=== PATIENT | male | born 1935 | race Caucasian/White ===

== ENCOUNTER 2019-09-14 13:09 | Inpatient (IN) ==
--- NOTE | 2019-09-14 13:23 | ERNOTE ---
Neuro HPI ER Record Presenting Symptoms: weakness, impaired speech, confusion Time Seen by Provider: 09/14/19 13:12 Source: family Exam Limitations: clinical condition Immunizations: IMMUNIZATION HX Immunizations Up to Date Yes History of Influenza Vaccine Yes Hx Pneumococcal Vaccination Yes Allergies/Adverse Reactions: Allergies Allergy/AdvReac Type Severity Reaction Status Date / Time No Known Allergies Allergy Verified 07/31/19 13:55 Home Medications: HOME MEDICATIONS Bifidobacterium infantis 1.5 billion cell capsule 4 mg PO DAILY 07/30/19 [Last Taken Unknown] apixaban 2.5 mg tablet 2.5 mg PO BID 07/30/19 [Last Taken Unknown] aspirin 81 mg tablet,delayed release 81 mg PO DAILY 07/30/19 [Last Taken Unknown] atorvastatin 10 mg tablet 10 mg PO HS 07/30/19 [Last Taken Unknown] cholecalciferol (vitamin D3) 2,000 unit capsule 2,000 unit PO DAILY 07/30/19 [Last Taken Unknown] folic acid 1 mg tablet 1 mg PO DAILY 07/30/19 [Last Taken Unknown] ipratropium-albuterol 0.5 mg-3 mg(2.5 mg base)/3 mL nebulization soln 3 ml IH QID PRN ml 07/30/19 [Last Taken Unknown] thiamine HCl (vitamin B1) 100 mg tablet 100 mg PO DAILY 07/30/19 [Last Taken Unknown] - History of Present Illness Narrative: states that at 9:30 this morning the patient was groggy and did not particularly want to get out of bed. At approximately noon he was confused and unable to answer questions adequately. Onset: cannot confirm onset, continues in ER Severity: moderate - Character of Deficits Additional Deficits: Present: impaired speech Baseline Cognition: Present: alert, oriented x 4 Baseline Gait: Present: uses a cane/walker Associated Symptoms: Denies: fever/chills, sweating Review of Systems - Review of Systems Constitutional: Present: See HPI EYE: Present: no symptoms reported ENT: Present: no symptoms reported Respiratory: Present: no symptoms reported Cardiology: Present: no symptoms reported Gastrointestinal/Abdominal: Present: no symptoms reported Genitourinary: Present: no symptoms reported Musculoskeletal: Present: no symptoms reported Skin: Present: no symptoms reported Neurological: Present: See HPI Endocrine: Present: no symptoms reported Hematologic/Lymphatic: Present: no symptoms reported Psych: Present: no symptoms reported Medical History (Last Reviewed 12/22/19 @ 13:32 by Sherin Roca RN) Dementia History of CVA (cerebrovascular accident) Onset Date: ~2015 History of [place] (myocardial infarction) Onset Date: ~1994 History of prostate cancer Onset Date: ~1995 had radiation and prostatectomy Weakness of right hand History of fracture of pelvis Onset Date: ~2016 Surgical History: Surgical History (Last Reviewed 09/14/19 @ 13:32 by Sherin Roca RN) H/O vasectomy Onset Date: ~1957 History of angioplasty Onset Date: ~1994 History of prostatectomy Onset Date: ~2000 Family History: Family History (Last Reviewed 09/14/19 @ 13:32 by Sherin Roca RN) Father COPD (chronic obstructive pulmonary disease) Social History: (Last Reviewed 09/14/19 @ 13:32 by Sherin Roca RN) Social History: Marital status: lives independently: Yes household members: spouse current occupational status: retired Highest education level completed: high school graduate Service: Yes Tobacco: Tobacco: How many years used: 50 Alcohol: alcohol intake: former Dietary Habits: caffeine: Yes Physical Exam - Physical Exam General Appearance: Present: wd/wn, alert, moderate distress Head Exam: Present: normal inspection, no evidence of injury Eye Exam: Normal inspection: bilateral, PERRL: bilateral Ears, Nose, Throat: Present: normal ENT inspection, H, normal pharynx Neck: Present: normal inspection, nontender Respiratory: Present: no respiratory distress, normal breath sounds, no accessory muscle use, chest nontender, lungs clear Cardiovascular/Chest: Present: no murmur, normal peripheral pulses, tachycardia Gastrointestinal/Abdominal: Present: normal bowel sounds, nontender, nondistended, soft, no organomegaly Rectal Exam: Present: deferred Back Exam: Present: normal inspection, normal range of motion Extremity Exam: Present: normal inspection, non-tender, no edema, normal range of motion Neurological Exam: Present: normal mood/affect, disoriented to person, disoriented to time, disoriented to place, disoriented to situation Skin Exam: Present: normal color, warm/dry Lymphatic Exam: Present: no adenopathy Deisi Coma Scale - Assess Eye Opening: Spontaneous Motor: Obeys Commands Verbal: Confused - Total Coma Scale Total: 14 Progress - Results and Orders Patient's Lab Results:: I have reviewed the patient's lab results. - Vital Signs Patient's Vital Signs:: I have reviewed the patient's vital signs. Vital Signs: Vital Signs 09/14/19 13:09 Temperature 36.4 C Pulse Rate 107 H Respiratory Rate 18 Blood Pressure 134/59 - EKG EKG #1 EKG: other - Sinus tachycardia - X-Ray X-Ray #1 X-Ray: chest Interpretation: Reviewed by me - CT/Ultrasound CT/Ultrasound Narrative: CT the head was reviewed by me - Progress/Reassessment Chief Complaint: Altered Mental Status Plan - Plan Plan: Patient starting to answer more questions now. He was never going to be a candidate for TPA as he is currently on Eliquis. Patient may need to be admitted overnight so we can get an echocardiogram and carotid Dopplers. Patient will likely need a swallow study as well. Departure Clinical Impression: CVA (cerebral vascular accident) Qualifiers: CVA mechanism: unspecified Qualified Code(s): I63.9 - Cerebral infarction, unspecified - Departure Disposition: Short Term Hospital Inpatient Condition: Fair Referrals: Marlon Yanes MD [Primary Care Provider] -
[2019-09-14 13:39] LABS: Hematocrit 29.9 % (42.0-52.0); Hemoglobin 9.6 gm/dL (13.5-18.0); Mean Cell Volume 98.7 fl (78-100); Mean Corpuscular Hemoglobin 31.7 pg (27-31); Mean Corpuscular Hgb Conc 32.1 g/dl (32-36); Mean Platelet Volume 9.3 fl (8-11.3); Neutrophil # 10.8 K/mm3 (1.3-6.0); Neutrophil % 78.6 % (42-75.0); Platelet Count 376 K/mm3 (150-450); Red Blood Count 3.03 M/mm3 (4.7-6.0); Red Cell Distribution Width 13.7 % (11.5-14.0); White Blood Count 13.8 K/mm3 (4.0-10.5)
[2019-09-14 13:50] LABS: Prothrombin Time (Patient) 11.2 Seconds (9.1-10.7)
[2019-09-14 13:52] LABS: INR 1.14 INR (0.92-1.08); Partial Thrombolplastin Time 27.2 Seconds (24-32)
[2019-09-14 13:53] LABS: Albumin * 3.3 gm/dl (3.4-5.0); Anion Gap 12.9 mmol/L (6.8-13.8); Bilirubin, Total 0.9 mg/dL (0.0-1.1); Ca. Corrected For Albumin 9.2 mg/dL (8.4-10.2); Carbon Dioxide 29.1 mmol/L (24-32.6); Total Protein 7.3 gm/dL (6.2-8.2)
[2019-09-14 14:02] LABS: Urine Appearance Clear (CLEAR); Urine Bilirubin Negative (NEGATIVE); Urine Blood 150 /ul (NEGATIVE); Urine Color Yellow; Urine Ketone Negative (NEGATIVE); Urine pH 6.5 pH (5.0-7.0)
[2019-09-14 14:03] LABS: Urine Nitrite Negative (NEGATIVE); Urine Protein 30 mg/dL (NEGATIVE); Urine Urobilinogen Normal (NORMAL); Urine WBC 0-5 /hpf (0-5)
[2019-09-14 14:09] LABS: Urine Bacteria TRACE
[2019-09-14] MEDS ORDERED: ALBUTEROL SULFATE/IPRATROPIUM 3 ML NEBU IH PRN (15:08)
--- NOTE | 2019-09-14 15:33 | HP ---
Chief Complaint - Chief Complaint Date of Service: 09/14/19 Time of Service: 15:10 Chief Complaint: BL LE weakness and expressive aphasia History of Present Illness: 83-year-old male with past medical history of CVA in 2016 with residu al deficits of hemiparesis affecting right side and dysphagia, multiple TIAs, history of myocardial infarction, vascular dementia status post CVA, gait disturbance and vitamin B12 deficiency presents to the ER with concerns of bilateral lower extremity weakness and expressive aphasia since 11 AM. Primary care provider is Dr. Akila MD. is at bedside. states that when he went to bed yesterday 7 PM, patient was able to speak and ambulate with a walker, she went in at 9:30 AM to wake him up however patient did not want to be woken up at that time, which was not abnormal with his history of dementia. At around 11 AM, his went in and attempted to take patient to the bathroom and while he was using his walker patient was not able to hold himself up and was showing signs of lower extremity weakness bilaterally, placed him on the chair and he tried to communicate to his and she could not understand him, speech was described as mumbled and slurred. Patient was brought to the ER for further evaluation. Upon arrival to the ER patient did show signs of hemiparesis affecting right side and expressive aphasia which temporarily resolved however at noon his symptoms resumed. Vital signs on arrival were largely unremarkable with exception of mildly elevated blood pressure. Labs obtained was significant for leukocytosis most likely reactive. CT of the head ruled out an acute bleed. Patient not a candidate for TPA due to being on Eliquis. Patient admitted under observation. On arrival to the floor patient was evaluated. NIHSS : 34. Due to his waning symptoms there is concern of possible clots, therefore will obtain a carotid ultrasound and an echo scheduled for tomorrow morning. PT/OT and speech therapy ordered as well. Patient is n.p.o. till video swallow. Due to dysphagia patient is on thick nectar diet at home. Will continue with neurochecks Q4H. Medical History (Last Reviewed 09/14/19 @ 15:02 by Natalie Voss RN) Dementia History of CVA (cerebrovascular accident) Onset Date: ~2015 History of [place] (myocardial infarction) Onset Date: ~1994 History of prostate cancer Onset Date: ~1995 had radiation and prostatectomy Weakness of right hand History of fracture of pelvis Onset Date: ~2016 Surgical History: Surgical History (Last Reviewed 09/14/19 @ 15:02 by Natalie Voss RN) H/O vasectomy Onset Date: ~1957 History of angioplasty Onset Date: ~1994 History of prostatectomy Onset Date: ~2000 Family History: Family History (Last Reviewed 09/14/19 @ 15:02 by Natalie Voss RN) Father COPD (chronic obstructive pulmonary disease) Social History: (Last Reviewed 09/14/19 @ 15:02 by Natalie Voss RN) Social History: Marital status: lives independently: Yes household members: spouse current occupational status: retired Highest education level completed: high school graduate Service: Yes Tobacco: Tobacco: How many years used: 50 Alcohol: alcohol intake: former Dietary Habits: caffeine: Yes Review Of Systems (GEN) - Review of Systems Generalized/Overall Review: Present: Weakness EENTM: Present: Other - Unable to track Respiratory: Absent: Shortness of Breath Cardiac: Absent: Chest Pain, Edema Abdominal: Absent: Abdominal Pain Genitourinary: Present: Incontinent - wears diapers at home Musculoskeletal: Absent: Joint Pain, Joint Swelling Neurological: Present: Weakness - Global weakness, Pre-existing Deficit - Right Hemiparesis and Dysphagia Skin: Present: Dryness Immunizations: IMMUNIZATION HX Immunizations Up to Date Yes History of Influenza Vaccine Yes Hx Pneumococcal Vaccination Yes Allergies/Adverse Reactions: Allergies Allergy/AdvReac Type Severity Reaction Status Date / Time morphine AdvReac Severe Other Verified 09/14/19 14:53 Home Medications: HOME MEDICATIONS Bifidobacterium infantis 1.5 billion cell capsule 4 mg PO DAILY 07/30/19 [Last Taken Unknown] apixaban 2.5 mg tablet 2.5 mg PO BID 07/30/19 [Last Taken Unknown] aspirin 81 mg tablet,delayed release 81 mg PO DAILY 07/30/19 [Last Taken Unknown] atorvastatin 10 mg tablet 10 mg PO HS 07/30/19 [Last Taken Unknown] cholecalciferol (vitamin D3) 2,000 unit capsule 2,000 unit PO DAILY 07/30/19 [Last Taken Unknown] folic acid 1 mg tablet 1 mg PO DAILY 07/30/19 [Last Taken Unknown] ipratropium-albuterol 0.5 mg-3 mg(2.5 mg base)/3 mL nebulization soln 3 ml IH QID PRN ml 07/30/19 [Last Taken Unknown] thiamine HCl (vitamin B1) 100 mg tablet 100 mg PO DAILY 07/30/19 [Last Taken Unknown] Exam - Exam Vital Signs: Vital Signs - Last Taken Temp 36.4 C 09/14/19 13:18 Pulse 104 H 09/14/19 14:12 Resp 17 09/14/19 14:12 BP 153/76 H 09/14/19 14:12 Pulse Ox 99 09/14/19 14:12 Constitutional: Present: Alert, Other - Unable to communicate, Thin and frail ENT Exam: Present: hearing grossly normal Eye Exam: bilateral eye: abnormal EOM, other - unable to evaluate,patient to completely open eyes Neck: Present: limited range of motion - unable to rotate neck towards the right side Back Exam: Present: decreased range of motion - of all extremitiexs Respiratory: Present: lungs clear, normal breath sounds Cardiovascular/Chest: Present: normal peripheral pulses, regular rate, rhythm Abdomen: Present: Normal bowel sounds, soft Extremity: Present: no pedal edema, other - BL LE weakness Skin Exam: Present: warm/dry Neurologic: Present: alert, abnormal order selector II-XII, abnormal gait, aphasia, EOM palsy, facial droop, motor weakness - BL LE and Right upper extremity, depressed affect, disoriented x 3 Appearance: Present: impaired insight, other - dementia Eye contact: Present: other - unable to maintain eye contact Diagnostic Studies: Abnormal Lab Results 09/14/19 09/14/19 09/14/19 Range/Units 13:33 13:33 13:33 WBC 13.8 H (4.0-10.5) K/mm3 RBC 3.03 L (4.7-6.0) M/mm3 Hgb 9.6 L (13.5-18.0) gm/dL Hct 29.9 L (42.0-52.0) % MCH 31.7 H (27-31) pg Immature Gran # (Auto) 0.04 H (0.000-0.0310) K/mm3 Neutrophils % 78.6 H (42-75.0) % Lymphocytes % 12.9 L (20-51) % Neutrophils # 10.8 H (1.3-6.0) K/mm3 Monocytes # 1.1 H (0.0-1.0) k/mm3 ESR 92 H (0-10) mm/hr PT 11.2 H (9.1-10.7) Seconds INR (Anticoag Therapy) 1.14 H (0.92-1.08) INR Potassium (3.4-4.6) mmol/L BUN (6-23) mg/dL Creatinine (0.4-1.4) mg/dL Est GFR (Non-Af Amer) (60-130) mL/min Random Glucose (70-110) mg/dL ALT (19-67) U/L Albumin (3.4-5.0) gm/dl Urine Protein (NEGATIVE) mg/dL Urine Blood (NEGATIVE) /ul Urine RBC (0-5) /hpf 09/14/19 09/14/19 Range/Units 13:33 13:51 WBC (4.0-10.5) K/mm3 RBC (4.7-6.0) M/mm3 Hgb (13.5-18.0) gm/dL Hct (42.0-52.0) % MCH (27-31) pg Immature Gran # (Auto) (0.000-0.0310) K/mm3 Neutrophils % (42-75.0) % Lymphocytes % (20-51) % Neutrophils # (1.3-6.0) K/mm3 Monocytes # (0.0-1.0) k/mm3 ESR (0-10) mm/hr PT (9.1-10.7) Seconds INR (Anticoag Therapy) (0.92-1.08) INR Potassium 5.0 H D (3.4-4.6) mmol/L BUN 25 H (6-23) mg/dL Creatinine 1.56 H (0.4-1.4) mg/dL Est GFR (Non-Af Amer) 45 L (60-130) mL/min Random Glucose 117 H (70-110) mg/dL ALT 15 L (19-67) U/L Albumin 3.3 L (3.4-5.0) gm/dl Urine Protein 30 H (NEGATIVE) mg/dL Urine Blood 150 H (NEGATIVE) /ul Urine RBC 5-10 H (0-5) /hpf Laboratory Results WBC 13.8 K/mm3 (4.0-10.5) H 09/14/19 13:33 RBC 3.03 M/mm3 (4.7-6.0) L 09/14/19 13:33 Hgb 9.6 gm/dL (13.5-18.0) L 09/14/19 13:33 Hct 29.9 % (42.0-52.0) L 09/14/19 13:33 MCV 98.7 fl (78-100) 09/14/19 13:33 MCH 31.7 pg (27-31) H 09/14/19 13:33 MCHC 32.1 g/dl (32-36) 09/14/19 13:33 RDW 13.7 % (11.5-14.0) 09/14/19 13:33 Plt Count 376 K/mm3 (150-450) 09/14/19 13:33 MPV 9.3 fl (8-11.3) 09/14/19 13:33 Immature Gran % (Auto) 0.30 % (0.001-0.429) 09/14/19 13:33 Immature Gran # (Auto) 0.04 K/mm3 (0.000-0.0310) H 09/14/19 13:33 Neutrophils % 78.6 % (42-75.0) H 09/14/19 13:33 Lymphocytes % 12.9 % (20-51) L 09/14/19 13:33 Monocytes % 7.8 % (0.0-9) 09/14/19 13:33 Eosinophils % 0.0 % (0.0-3.0) 09/14/19 13:33 Basophils % 0.4 % (0.0-1.0) 09/14/19 13:33 Nucleated RBC % 0.0 k/mm3 (0-1) 09/14/19 13:33 Neutrophils # 10.8 K/mm3 (1.3-6.0) H 09/14/19 13:33 Lymphocytes # 1.78 k/mm3 (1.5-3.5) 09/14/19 13:33 Monocytes # 1.1 k/mm3 (0.0-1.0) H 09/14/19 13:33 Eosinophils # 0.0 k/mm3 (0.0-0.7) 09/14/19 13:33 Absolute Basophils 0.1 k/mm3 (0.0-0.1) 09/14/19 13:33 ESR 92 mm/hr (0-10) H 09/14/19 13:33 PT 11.2 Seconds (9.1-10.7) H 09/14/19 13:33 INR (Anticoag Therapy) 1.14 INR (0.92-1.08) H 09/14/19 13:33 PTT ([place]) 27.2 Seconds (24-32) 09/14/19 13:33 Sodium 140 mmol/L (132-142) 09/14/19 13:33 Plasma Sodium 140 mmol/L (130-142) 09/14/19 13:33 Potassium 5.0 mmol/L (3.4-4.6) H D 09/14/19 13:33 Chloride 103 mmol/L (97-106) 09/14/19 13:33 Carbon Dioxide 29.1 mmol/L (24-32.6) 09/14/19 13:33 Anion Gap 12.9 mmol/L (6.8-13.8) 09/14/19 13:33 BUN 25 mg/dL (6-23) H 09/14/19 13:33 Creatinine 1.56 mg/dL (0.4-1.4) H 09/14/19 13:33 Est GFR (Non-Af Amer) 45 mL/min (60-130) L 09/14/19 13:33 BUN/Creatinine Ratio 16.0 (9.0-21.6) 09/14/19 13:33 Random Glucose 117 mg/dL (70-110) H 09/14/19 13:33 Calcium 9.0 mg/dL (7.9-10.9) 09/14/19 13:33 Calcium Adj for Albumin 9.2 mg/dL (8.4-10.2) 09/14/19 13:33 Total Bilirubin 0.9 mg/dL (0.0-1.1) 09/14/19 13:33 AST 16 U/L (0-48) 09/14/19 13:33 ALT 15 U/L (19-67) L 09/14/19 13:33 Alkaline Phosphatase 94 U/L (50-170) 09/14/19 13:33 Total Protein 7.3 gm/dL (6.2-8.2) 09/14/19 13:33 Albumin 3.3 gm/dl (3.4-5.0) L 09/14/19 13:33 Urine Color Yellow 09/14/19 13:51 Urine Appearance Clear (CLEAR) 09/14/19 13:51 Urine pH 6.5 pH (5.0-7.0) 09/14/19 13:51 Ur Specific [place] 1.020 SP.GR. (1.005-1.030) 09/14/19 13:51 Urine Protein 30 mg/dL (NEGATIVE) H 09/14/19 13:51 Urine Glucose (UA) Negative mg/dL (NEGATIVE) 09/14/19 13:51 Urine Ketones Negative mg/dL (NEGATIVE) 09/14/19 13:51 Urine Blood 150 /ul (NEGATIVE) H 09/14/19 13:51 Urine Nitrate Negative (NEGATIVE) 09/14/19 13:51 Urine Bilirubin Negative mg/dl (NEGATIVE) 09/14/19 13:51 Prot Sulfosalicylic Acd 1+ mg/dL (0) 09/14/19 13:51 Urine Urobilinogen Normal EU/dl (NORMAL) 09/14/19 13:51 Ur Leukocyte Esterase Negative /ul (NEGATIVE) 09/14/19 13:51 Urine RBC 5-10 /hpf (0-5) H 09/14/19 13:51 Urine WBC 0-5 /hpf (0-5) 09/14/19 13:51 Ur Epithelial Cells 0-5 /hpf (0-5) 09/14/19 13:51 Urine Bacteria Trace (NONE) 09/14/19 13:51 Urine Culture Comments No culture indicated 09/14/19 13:51 Assessment/Plan - Narrative Narrative: - Assessment/Plan (1) Acute CVA (cerebral vascular accident) - NIHSS: 34 - CT head r/o acute bleed - Not a candidate for tPA due to Eliquis - Neurocheck Q4H - Allow permissive hypertension - Cotinous telemetry - Aspirin 325 mg rectally - Lovenox Q224H, unable to take PO therefore Eliquis and Plavix not an option for anticoagulation - Awaiting to hear from Pharmacy for IV choice for high dose statin - US of Crotids and Echo Pending. (2) Hemiparesis affecting right upper and lower extremity and Left Lower extremity - PT/OT ordered (3) Dysphagia and Expressive Aphasia - NPO, till video swallow, keep mouth moist with most swabs - Speech therapy ordered (4) Vascular dementia - Chronic FEN: NPO DVT PPX: Lovenox 40 mg SC CODE STATUS: DNR/DNI Disposition: - Follow up on US of Carotids and Echo - Follow up on PT/OT & Speech Therapy Recommendations. - Assessment/Plan (1) CVA (cerebral vascular accident) Problem: Acute Qualifiers: CVA mechanism: unspecified Qualified Code(s): I63.9 - Cerebral infarction, unspecified (2) Dysphagia Problem: Acute Qualifiers: Dysphagia type: oropharyngeal phase Qualified Code(s): R13.12 - Dysphagia, oropharyngeal phase (3) Hemiparesis affecting right side as late effect of cerebrovascular accident Problem: Chronic (4) Vascular dementia Problem: Chronic Qualifiers: Dementia behavioral disturbance: without behavioral disturbance
[2019-09-14] MEDS ORDERED: ENOXAPARIN SODIUM 40 MG/0.4 ML SYRG SC ONE (15:46)
[2019-09-14] MEDS: ENOXAPARIN SODIUM 30 MG/0.3 ML SYRG SC SCH (16:20)
[2019-09-15 06:36] LABS: Hematocrit 25.9 % (42.0-52.0); Hemoglobin 8.4 gm/dL (13.5-18.0); Mean Cell Volume 98.1 fl (78-100); Mean Corpuscular Hemoglobin 31.8 pg (27-31); Mean Corpuscular Hgb Conc 32.4 g/dl (32-36); Mean Platelet Volume 9.4 fl (8-11.3); Platelet Count 386 K/mm3 (150-450); Red Blood Count 2.64 M/mm3 (4.7-6.0); Red Cell Distribution Width 13.9 % (11.5-14.0); White Blood Count 9.5 K/mm3 (4.0-10.5)
[2019-09-15 06:40] LABS: Albumin * 2.8 gm/dl (3.4-5.0); Anion Gap 13.4 mmol/L (6.8-13.8); BUN/Creatinine Ratio 21.4 (9.0-21.6); Bilirubin, Total 0.6 mg/dL (0.0-1.1); Ca. Corrected For Albumin 9.4 mg/dL (8.4-10.2); Calcium * 8.8 mg/dL (7.9-10.9); Carbon Dioxide 26.9 mmol/L (24-32.6); Potassium 4.3 mmol/L (3.4-4.6); Total Protein 6.5 gm/dL (6.2-8.2)
[2019-09-15 06:48] LABS: Total Cells Counted 100
[2019-09-15 07:00] LABS: Lymphocyte 24 % (20-51); Monocyte 9 % (0-9); Neutrophil 67 % (42-75); Neutrophil # 6.4 K/mm3 (1.3-6.0); Platelet Estimate Normal (NORMAL); RBC Morphology Normal (NORMAL)
[2019-09-15] MEDS ORDERED: ASPIRIN 300 MG SUPP.RECT RC SCH (09:00)
[2019-09-15] MEDS ORDERED: ASPIRIN 325 MG TABLET.DR PO ONE (11:46)
--- NOTE | 2019-09-15 12:09 | PN ---
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 is at bedside. states that when he went to bed yesterday the night before last, patient was able to speak and ambulate with a walker, she went in at 9:30 AM to wake him up however patient did not want to be woken up at that time, which was not abnormal with his history of dementia. At around 11 AM, his went in and attempted to take patient to the bathroom and while he was using his walker patient was not able to hold himself up and was showing signs of lower extremity weakness bilaterally, primarily left sided, placed him on the chair and he tried to communicate to his and she could not understand him, speech was described as mumbled and slurred. Patient was brought to the ER for further evaluation. Upon arrival to the ER patient did show signs of hemiparesis affecting left side and expressive aphasia which temporarily resolved however at noon his symptoms resumed. He has chronic weakness on the right side due to previous stroke. He is right hand dominent Vital signs on arrival were largely unremarkable with exception of mildly elevated blood pressure, which has resolved, and vitals have been stable since. Labs obtained was significant for leukocytosis most likely reactive, resolving on today's lab. He was anemic on admission and dropped 1 gram of hgb on today's labs.. CT of the head ruled out an acute bleed. Patient not a candidate for TPA due to being on Eliquis. His echo and carotid doppler reports are not yet available. Patient admitted under observation. On arrival to the floor patient was evaluated. NIHSS : 34. PT/OT and speech therapy in progress. Speech says pureed food and honey thickened liquids. She said video swallow not needed. we will continue neurochecks q4h, but as he is stable, will d/c telemetry. Objective - Review of Systems Generalized/Overall Review: Reports: Weakness EENTM: Reports: No Symptoms Reported Respiratory: Reports: No Symptoms Reported Cardiac: Reports: No Symptoms Reported Genitourinary Symptoms: Reports: No Symptoms Reported Musculoskeletal Complaints: Reports: No Symptoms Reported Neurological: Reports: Weakness - new weakness left side. dysarthria, better this morning., Pre-existing Deficit Skin: Reports: No Symptoms Reported Endocrine: Reports: No Symptoms Reported Misc: All systems neg except as marked - Vitals Vitals: Last Vital Signs Temp 36.8 C 09/15/19 09:00 Pulse 91 09/15/19 09:00 Resp 18 09/15/19 09:00 BP 147/68 09/15/19 09:00 Pulse Ox 95 09/15/19 09:00 - Abnormal Lab Findings Abnormal Lab Findings: Abnormal Lab Results 09/14/19 09/14/19 09/14/19 Range/Units 13:33 13:33 13:33 WBC 13.8 H (4.0-10.5) K/mm3 RBC 3.03 L (4.7-6.0) M/mm3 Hgb 9.6 L (13.5-18.0) gm/dL Hct 29.9 L (42.0-52.0) % MCH 31.7 H (27-31) pg Immature Gran # (Auto) 0.04 H (0.000-0.0310) K/mm3 Neutrophils % 78.6 H (42-75.0) % Lymphocytes % 12.9 L (20-51) % Neutrophils # 10.8 H (1.3-6.0) K/mm3 Neutrophils # (Manual) (1.3-6.0) K/mm3 Monocytes # 1.1 H (0.0-1.0) k/mm3 ESR 92 H (0-10) mm/hr PT 11.2 H (9.1-10.7) Seconds INR (Anticoag Therapy) 1.14 H (0.92-1.08) INR Potassium (3.4-4.6) mmol/L BUN (6-23) mg/dL Creatinine (0.4-1.4) mg/dL Est GFR (Non-Af Amer) (60-130) mL/min Random Glucose (70-110) mg/dL ALT (19-67) U/L Albumin (3.4-5.0) gm/dl Urine Protein (NEGATIVE) mg/dL Urine Blood (NEGATIVE) /ul Urine RBC (0-5) /hpf 09/14/19 09/14/19 09/15/19 Range/Units 13:33 13:51 06:15 WBC (4.0-10.5) K/mm3 RBC 2.64 L (4.7-6.0) M/mm3 Hgb 8.4 L (13.5-18.0) gm/dL Hct 25.9 L (42.0-52.0) % MCH 31.8 H (27-31) pg Immature Gran # (Auto) (0.000-0.0310) K/mm3 Neutrophils % (42-75.0) % Lymphocytes % (20-51) % Neutrophils # (1.3-6.0) K/mm3 Neutrophils # (Manual) 6.4 H (1.3-6.0) K/mm3 Monocytes # (0.0-1.0) k/mm3 ESR (0-10) mm/hr PT (9.1-10.7) Seconds INR (Anticoag Therapy) (0.92-1.08) INR Potassium 5.0 H D (3.4-4.6) mmol/L BUN 25 H (6-23) mg/dL Creatinine 1.56 H (0.4-1.4) mg/dL Est GFR (Non-Af Amer) 45 L (60-130) mL/min Random Glucose 117 H (70-110) mg/dL ALT 15 L (19-67) U/L Albumin 3.3 L (3.4-5.0) gm/dl Urine Protein 30 H (NEGATIVE) mg/dL Urine Blood 150 H (NEGATIVE) /ul Urine RBC 5-10 H (0-5) /hpf 09/15/19 Range/Units 06:15 WBC (4.0-10.5) K/mm3 RBC (4.7-6.0) M/mm3 Hgb (13.5-18.0) gm/dL Hct (42.0-52.0) % MCH (27-31) pg Immature Gran # (Auto) (0.000-0.0310) K/mm3 Neutrophils % (42-75.0) % Lymphocytes % (20-51) % Neutrophils # (1.3-6.0) K/mm3 Neutrophils # (Manual) (1.3-6.0) K/mm3 Monocytes # (0.0-1.0) k/mm3 ESR (0-10) mm/hr PT (9.1-10.7) Seconds INR (Anticoag Therapy) (0.92-1.08) INR Potassium (3.4-4.6) mmol/L BUN 31 H (6-23) mg/dL Creatinine 1.45 H (0.4-1.4) mg/dL Est GFR (Non-Af Amer) 49 L (60-130) mL/min Random Glucose (70-110) mg/dL ALT 12 L (19-67) U/L Albumin 2.8 L (3.4-5.0) gm/dl Urine Protein (NEGATIVE) mg/dL Urine Blood (NEGATIVE) /ul Urine RBC (0-5) /hpf - Exam Constitutional: Present: Alert, Cooperative, No distress, Other - oriented X2, not to date or time. ENT Exam: Present: normal ENT inspection, hard of hearing Neck: Present: normal inspection. Absent: lymphadenopathy (R), lymphadenopathy (L), thyromegaly Breasts: Present: Exam deferred Respiratory: Present: lungs clear, no respiratory distress Cardiovascular/Chest: Present: normal peripheral pulses, regular rate, rhythm, no chest tenderness, no edema, no gallop, no JVD, no murmur Abdomen: Present: Normal bowel sounds, soft, nontender, no hepatospenomegaly, no masses /Rectal: Present: Exam deferred Extremity: Present: normal range of motion, non-tender, normal inspection, no pedal edema, no calf tenderness, other - can move his left arm and leg well, though weak on that side against resistance. moving slower than at home, with the help of physical therapy. Skin Exam: Present: normal color, warm/dry, no cyanosis Lymphatic: Present: no adenopathy Neurologic: Present: alert, abnormal gait, motor weakness, other - dysarthria Appearance: Present: appropriate appearance, neat Eye contact: Present: cooperative, good eye contact. Absent: normal speech Thoughts: Present: normal thought pattern Assessment/Plan - Problems/Diagnosis (1) CVA (cerebral vascular accident) Problem: Acute Qualifiers: CVA mechanism: unspecified Qualified Code(s): I63.9 - Cerebral infarction, unspecified (2) Left-sided weakness Problem: Acute Narrative: we will wait for enough improvement for him to be safe at home, using PT we will adjust his diet as recommended by ST. (3) Dysarthria Problem: Acute (4) Chronic anemia Problem: Chronic Narrative: we will continue to follow his blood count and resume his usual vitamins. (5) Vascular dementia Problem: Chronic Qualifiers: Dementia behavioral disturbance: without behavioral disturbance Qualified Code(s): F01.50 - Vascular dementia without behavioral disturbance (6) History of CVA (cerebrovascular accident) Problem: Chronic
[2019-09-15] MEDS: ENOXAPARIN SODIUM 30 MG/0.3 ML SYRG SC SCH (15:33)
[2019-09-15] MEDS ORDERED: ROSUVASTATIN CALCIUM 20 MG TABLET PO SCH (21:00)
[2019-09-15] MEDS: APIXABAN 5 MG TABLET PO SCH (21:10)
[2019-09-16 06:45] LABS: Hematocrit 25.3 % (42.0-52.0); Hemoglobin 8.1 gm/dL (13.5-18.0); Mean Cell Volume 98.8 fl (78-100); Mean Corpuscular Hemoglobin 31.6 pg (27-31); Mean Platelet Volume 9.5 fl (8-11.3); Platelet Count 364 K/mm3 (150-450); Red Blood Count 2.56 M/mm3 (4.7-6.0); Red Cell Distribution Width 13.5 % (11.5-14.0); White Blood Count 7.3 K/mm3 (4.0-10.5)
[2019-09-16 06:49] LABS: Total Cells Counted 100
[2019-09-16 06:50] LABS: Albumin * 2.6 gm/dl (3.4-5.0); Anion Gap 13.2 mmol/L (6.8-13.8); BUN/Creatinine Ratio 25.4 (9.0-21.6); Bilirubin, Total 0.3 mg/dL (0.0-1.1); Ca. Corrected For Albumin 9.8 mg/dL (8.4-10.2); Carbon Dioxide 27.5 mmol/L (24-32.6); Potassium 3.7 mmol/L (3.4-4.6); Total Protein 6.1 gm/dL (6.2-8.2)
[2019-09-16 07:10] LABS: Atypical (Reactive) Lymph 2 % (0-2); Eosinophil 1 % (0-3); Lymphocyte 25 % (20-51); Monocyte 7 % (0-9); Neutrophil 65 % (42-75); Neutrophil # 4.7 K/mm3 (1.3-6.0)
[2019-09-16 07:12] LABS: Hypochromia 1+; Ovalocytes 1+; Platelet Estimate Normal (NORMAL)
[2019-09-16] MEDS: APIXABAN 5 MG TABLET PO SCH (08:55)
[2019-09-16] MEDS ORDERED: FOLIC ACID 1 MG TABLET PO SCH (09:00)
[2019-09-16] MEDS ORDERED: CLOPIDOGREL BISULFATE 75 MG TABLET PO SCH (09:00)
[2019-09-16] MEDS ORDERED: VITAMIN B COMP W-C 1 TAB TABLET PO SCH (09:00)
[2019-09-16] MEDS ORDERED: CYANOCOBALAMIN 1,000 MCG TABLET PO SCH (09:00)
[2019-09-16] MEDS ORDERED: THIAMINE HCL 100 MG TABLET PO SCH (09:00)
[2019-09-16] MEDS ORDERED: ASPIRIN 325 MG TABLET.DR PO SCH (09:00)
--- NOTE | 2019-09-16 09:00 | PN ---
Juan Pablo Note - Interim Date: 09/16/19 Time: 09:00 Narrative: 09/16/19 09:00 Clinical findings: Documentation by nutrition of "Assessment: BMI= 15.1. Pt is severely malnourished (per ASPEN guidelines) in context to chronic disease as evidenced by three areas of muscle loss (hollowing in the mormonism region, a protruding clavicle bone, and prominent acromion bone region) and two areas of fat loss (hollowed look in the orbital area and muscle loss in the bicep region). Pt has also lost 4.1 kg or 8.6% of his weight in the last 7 weeks, significant. Est needs=44x25+500 for weight tfkr=8322 cals, 44x1.3=57 grams protein and 29d38=3345 ml fluid daily."
--- NOTE | 2019-09-16 10:49 | DS ---
(1) CVA (cerebral vascular accident) Diagnosis(s): White blood count has normalized. Hemoglobin is stable. His hemoglobin today is 8.2. Electrolytes are normal. GFR is only modestly decreased. Total protein and albumin are both low. Problem: Resolved Qualifiers: CVA mechanism: unspecified (2) Left-sided weakness Problem: Resolved (3) Dysarthria Problem: Resolved (4) Protein-calorie malnutrition, severe Diagnosis(s): Clinical findings: Documentation by nutrition of "Assessment: BMI= 15.1. Pt is severely malnourished (per ASPEN guidelines) in context to chronic disease as evidenced by three areas of muscle loss (hollowing in the restoration region, a protruding clavicle bone, and prominent acromion bone region) and two areas of fat loss (hollowed look in the orbital area and muscle loss in the bicep region). Pt has also lost 4.1 kg or 8.6% of his weight in the last 7 weeks, significant. Est needs=44x25+500 for weight ttaq=4911 cals, 44x1.3=57 grams protein and 65g22=9053 ml fluid daily. Today I advised increasing that to 3 containers every day. He has been using 1 container of Ensure clear at home. Problem: Chronic (5) Chronic anemia Diagnosis(s): Hemoglobin stable Problem: Chronic (6) History of CVA (cerebrovascular accident) Problem: Chronic (7) Vascular dementia Problem: Chronic Qualifiers: Dementia behavioral disturbance: without behavioral disturbance Qualified Code(s): F01.50 - Vascular dementia without behavioral disturbance Hospital Course: This gentleman has had recurrent strokes. He has chronic weakness on his right side. On this admission he came in with dysarthria and left-sided weakness even though he is right-handed. Echo and Doppler carotid exam did not reveal any treatable findings. This event was most likely due to small vessel disease in the brain. We will continue his previous medicines and strongly recommend nutritional increase. He and his understand the stroke may occur again in the future. Exam today showed that his speech is clear and that his weakness is back to baseline. His daughter mentioned that he has had a congested cough since being here. Lungs are clear heart is normal on auscultation. The plan will be ongoing observation and intervention if necessary. Procedures Performed: none Results and Findings: Lab Pending Results 09/14/19 13:33: WBC 13.8 H, RBC 3.03 L, Hgb 9.6 L, Hct 29.9 L, MCV 98.7, MCH 31.7 H, MCHC 32.1, RDW 13.7, Plt Count 376, MPV 9.3, Immature Gran % (Auto) 0.30, Immature Gran # (Auto) 0.04 H, Neutrophils % 78.6 H, Lymphocytes % 12.9 L, Monocytes % 7.8, Eosinophils % 0.0, Basophils % 0.4, Nucleated RBC % 0.0, Neutrophils # 10.8 H, Lymphocytes # 1.78, Monocytes # 1.1 H, Eosinophils # 0.0, Absolute Basophils 0.1 09/14/19 13:33: ESR 92 H 09/14/19 13:33: PT 11.2 H, INR (Anticoag Therapy) 1.14 H, PTT ([place]) 27.2 09/14/19 13:33: Sodium 140, Plasma Sodium 140, Potassium 5.0 H D, Chloride 103, Carbon Dioxide 29.1, Anion Gap 12.9, BUN 25 H, Creatinine 1.56 H, Est GFR (Non- Af Amer) 45 L, BUN/Creatinine Ratio 16.0, Random Glucose 117 H, Calcium 9.0, Calcium Adj for Albumin 9.2, Total Bilirubin 0.9, AST 16, ALT 15 L, Alkaline Phosphatase 94, Total Protein 7.3, Albumin 3.3 L 09/14/19 13:51: Urine Color Yellow, Urine Appearance Clear, Urine pH 6.5, Ur Specific [place] 1.020, Urine Protein 30 H, Urine Glucose (UA) Negative, Urine Ketones Negative, Urine Blood 150 H, Urine Nitrate Negative, Urine Bilirubin Negative, Prot Sulfosalicylic Acd 1+, Urine Urobilinogen Normal, Ur Leukocyte Esterase Negative, Urine RBC 5-10 H, Urine WBC 0-5, Ur Epithelial Cells 0-5, Urine Bacteria Trace, Urine Culture Comments No culture indicated 09/15/19 06:15: WBC 9.5 D, RBC 2.64 L, Hgb 8.4 L, Hct 25.9 L, MCV 98.1, MCH 31.8 H, MCHC 32.4, RDW 13.9, Plt Count 386, MPV 9.4, Neutrophils % (Manual) 67, Lymphocytes % (Manual) 24, Monocytes % (Manual) 9, Neutrophils # (Manual) 6.4 H, Lymphocytes # (Manual) 2.3, Monocytes # (Manual) 0.9, Platelet Estimate Normal, RBC Morphology Normal 09/15/19 06:15: Sodium 141, Plasma Sodium 141, Potassium 4.3, Chloride 105, Carbon Dioxide 26.9, Anion Gap 13.4, BUN 31 H, Creatinine 1.45 H, Est GFR (Non- Af Amer) 49 L, BUN/Creatinine Ratio 21.4, Random Glucose 78 D, Calcium 8.8, Calcium Adj for Albumin 9.4, Total Bilirubin 0.6, AST 12, ALT 12 L, Alkaline Phosphatase 80, Total Protein 6.5, Albumin 2.8 L 09/16/19 06:04: WBC 7.3 D, RBC 2.56 L, Hgb 8.1 L, Hct 25.3 L, MCV 98.8, MCH 31.6 H, MCHC 32.0, RDW 13.5, Plt Count 364, MPV 9.5, Neutrophils % (Manual) 65, Lymphocytes % (Manual) 25, Monocytes % (Manual) 7, Eosinophils % (Manual) 1, Neutrophils # (Manual) 4.7, Lymphocytes # (Manual) 1.8, Monocytes # (Manual) 0.5, Eosinophils # (Manual) 0.1, Atypic/Reactive Lymphs 2, Platelet Estimate Normal, Hypochromasia 1+, Ovalocytes 1+ 09/16/19 06:04: Sodium 142, Plasma Sodium 142, Potassium 3.7, Chloride 105, Carbon Dioxide 27.5, Anion Gap 13.2, BUN 35 H, Creatinine 1.38, Est GFR (Non-Af Amer) 52 L, BUN/Creatinine Ratio 25.4 H, Random Glucose 94, Calcium 9.0, Calcium Adj for Albumin 9.8, Total Bilirubin 0.3, AST 10, ALT 10 L, Alkaline Phosphatase 70, Total Protein 6.1 L, Albumin 2.6 L Discharge Location: Home Disposition: Home self-care Condition: Fair Discharge Activity: Activity as tolerated - with walker Discharge Diet: Other - Pured food and nectar consistency liquids. Referrals: Marlon Yanes MD [Primary Care Provider] - Additional Patient Instructions (free text): Please call if you have problems or questions. Follow-up with me in the office in 1 week. Complete Home Medications List: Complete Home Medication List: Bifidobacterium infantis 1.5 billion cell capsule 4 mg PO DAILY 07/30/19 apixaban 2.5 mg tablet 2.5 mg PO BID 07/30/19 atorvastatin 10 mg tablet 10 mg PO HS 07/30/19 cholecalciferol (vitamin D3) 2,000 unit capsule 2,000 unit PO DAILY 07/30/19 folic acid 1 mg tablet 1 mg PO DAILY 07/30/19 ipratropium-albuterol 0.5 mg-3 mg(2.5 mg base)/3 mL nebulization soln 3 ml IH QID PRN ml 07/30/19 thiamine HCl (vitamin B1) 100 mg tablet 100 mg PO DAILY 07/30/19 Aspirin [Aspirin Enteric Coated] 325 mg PO DAILY #30 tablet.dr 09/16/19 Clopidogrel Bisulfate [Plavix] 75 mg PO DAILY tab 09/16/19 Cyanocobalamin (Vitamin B-12) [Vitamin B-12] 1,000 mcg SUBLINGUAL DAILY #30 tab.subl 09/16/19 Nut.tx.impaired Digest Fxn [Ensure Clear] 200 ml PO TID #90 liquid 09/16/19 Rosuvastatin Calcium [Crestor] 40 mg PO HS #30 tab 09/16/19 Vitamin B Comp W-C [Vitabee W/C] 1 tab PO DAILY #30 tab 09/16/19
[2019-09-16 11:54] VITALS: BP 140/60
--- NOTE | 2019-09-18 09:48 | ECHO ---
This report is available in the EMR
== END 2019-09-16 12:00 | disposition home or self-care (01) | DRG 64 ==
LOC: ER 13:09 → MS 13:09 → OBSVTOIN 14:15 → MS 14:48
PROVIDERS: ADMIT Family Medicine; ATTEND Allergy & Immunology
DX: G81.91 Hemiplegia, unspecified affecting right dominant side; Z87.891 Personal history of nicotine dependence; R47.01 Aphasia; I63.9 Cerebral infarction, unspecified; E43 Unspecified severe protein-calorie malnutrition; R29.734 NIHSS score 34; F01.50 Vascular dementia, unspecified severity, without behavioral disturbance, psychotic disturbance, mood disturbance, and anxiety; D51.9 Vitamin B12 deficiency anemia, unspecified; Z68.1 Body mass index [BMI] 19.9 or less, adult; I69.391 Dysphagia following cerebral infarction
CPT/HCPCS: 36415; 70450; 71010; 71045; 80053; 81001; 85007; 85025; 85610; 85652; 85730; 92526; 92610; 93005; 93306; 93880; 97116; 97162; 97165; 97535; 99285

== ENCOUNTER 2019-10-03 14:31 | Observation (INO) ==
--- NOTE | 2019-10-03 15:01 | ERNOTE ---
Lower Extremity HPI - General Lower Extremities Pain: hip: right Time Seen by Provider: 10/03/19 14:38 Source: family Exam Limitations: dementia - Immun/Allergies/Home Medications Immunizations: IMMUNIZATION HX Immunizations Up to Date Yes History of Influenza Vaccine Yes Hx Pneumococcal Vaccination Yes Allergies/Adverse Reactions: Allergies Allergy/AdvReac Type Severity Reaction Status Date / Time morphine AdvReac Severe Other Verified 10/03/19 14:51 Home Medications: HOME MEDICATIONS Bifidobacterium infantis 1.5 billion cell capsule 4 mg PO DAILY 07/30/19 [Last Taken 09/13/19] apixaban 2.5 mg tablet 2.5 mg PO BID 07/30/19 [Last Taken 09/13/19] cholecalciferol (vitamin D3) 2,000 unit capsule 2,000 unit PO DAILY 07/30/19 [Last Taken 09/13/19] folic acid 1 mg tablet 1 mg PO DAILY 07/30/19 [Last Taken 09/13/19] ipratropium-albuterol 0.5 mg-3 mg(2.5 mg base)/3 mL nebulization soln 3 ml IH QID PRN ml 07/30/19 [Last Taken 09/14/19] thiamine HCl (vitamin B1) 100 mg tablet 100 mg PO DAILY 07/30/19 [Last Taken 09/13/19] Aspirin [Aspirin Enteric Coated] 325 mg PO DAILY #30 tablet.dr 09/16/19 [Last Taken Unknown] Clopidogrel Bisulfate [Plavix] 75 mg PO DAILY tab 09/16/19 [Last Taken Unknown] Cyanocobalamin (Vitamin B-12) [Vitamin B-12] 1,000 mcg SUBLINGUAL DAILY #30 tab.subl 09/16/19 [Last Taken Unknown] Nut.tx.impaired Digest Fxn [Ensure Clear] 200 ml PO TID #90 liquid 09/16/19 [Last Taken Unknown] Vitamin B Comp W-C [Vitabee W/C] 1 tab PO DAILY #30 tab 09/16/19 [Last Taken Unknown] rosuvastatin 20 mg tablet 40 mg PO HS #180 tab 09/18/19 [Last Taken Unknown] carvedilol 3.125 mg tablet 3.125 mg PO BID #60 tab 09/22/19 [Last Taken Unknown] enalapril maleate 5 mg tablet 5 mg PO DAILY #30 tab 09/22/19 [Last Taken Unknown] - History of Present Illness Narrative: Patient has a history of dementia and lives at home with his who is his caregiver. Twice a week he goes to the [place] [facility] during the day. While there yesterday he got up wrapped in a blanket and tried to walk without a walker and fell. He was able to ambulate afterwards and transfer to wheelchair. Today he has refused to walk due to pain, history is limited due to dementia, patient do esn't even recognize his most of the time. He has a history of frequent falls Occurred: yesterday Location of Incident: other Method of Injury: Reports: fell Reason for Fall: Reports: lost balance, tripped Loss of Consciousness: Reports: no loss of consciousness Modifying Factors - (Worsens): Reports: movement Other Injuries: Reports: none Subsequent Symptoms: Denies: sensory loss, numbness Review of Systems - Narrative Narrative: limited by dementia Medical History (Last Reviewed 10/03/19 @ 14:59 by Brenda De Jesus MD) Dementia History of CVA (cerebrovascular accident) Onset Date: ~2015 History of VA (myocardial infarction) Onset Date: ~1994 History of prostate cancer Onset Date: ~1995 had radiation and prostatectomy Weakness of right hand History of fracture of pelvis Onset Date: ~2016 Surgical History: Surgical History (Last Reviewed 10/03/19 @ 14:59 by Brenda De Jesus MD) H/O vasectomy Onset Date: ~1957 History of angioplasty Onset Date: ~1994 History of prostatectomy Onset Date: ~2000 Family History: Family History (Last Reviewed 10/03/19 @ 14:51 by Tiara Garcia RN) Father COPD (chronic obstructive pulmonary disease) Social History: (Last Reviewed 10/03/19 @ 14:51 by Tiara Garcia RN) Social History: Marital status: lives independently: Yes household members: spouse current occupational status: retired Highest education level completed: high school graduate Service: Yes Tobacco: Tobacco: How many years used: 50 Alcohol: alcohol intake: former Dietary Habits: caffeine: Yes Physical Exam - Physical Exam General Appearance: Present: wd/wn, alert, no apparent distress, thin, other - curled up in bed laying on right side Head Exam: Present: normal inspection, no evidence of injury Eye Exam: Normal inspection: bilateral Neck: Present: normal inspection, nontender Respiratory: Present: no respiratory distress, no accessory muscle use, lungs clear, decreased breath sounds Cardiovascular/Chest: Present: regular rate, rhythm, no murmur Gastrointestinal/Abdominal: Present: normal bowel sounds, nontender Back Exam: Present: normal inspection, no vertebral tenderness Extremity Exam: Present: other - pain on ROM of right hip, resists exam Neurological Exam: Present: alert, disoriented to person, disoriented to time, disoriented to place, disoriented to situation Skin Exam: Present: warm/dry, pallor Progress - Results and Orders Patient's Lab Results:: I have reviewed the patient's lab results. - Vital Signs Patient's Vital Signs:: I have reviewed the patient's vital signs. Vital Signs: Vital Signs 10/03/19 14:32 Temperature 36.7 C Pulse Rate 91 Respiratory Rate 20 Blood Pressure 180/62 H O2 Sat by Pulse Oximetry 94 - X-Ray X-Ray #1 X-Ray: hip - no acute changes or obvious fracture Interpretation: Reviewed by me X-Ray #2 X-Ray: chest - right sided infiltrate Interpretation: Reviewed by me - Progress/Reassessment Chief Complaint: Fall Progress Note-Subjective: 10/03/19 15:49 discussed Xray findings with , no fracture, CXR concerning for right sided pneumonia O2sat 89% on RA, now 91% on 1 liter 10/03/19 16:28 PSI 155 points, class V, acute admission discussed with , agrees to admission copy of Ipost made, patient is DNR, no intubation 10/03/19 16:35 discussed with artem Robertson to admit for pneumonia, start rocephin and zithromax Departure Clinical Impression: Contusion, hip and thigh Qualifiers: Encounter type: initial encounter Laterality: right Qualified Code(s): S70.01XA - Contusion of right hip, initial encounter Vascular dementia Qualifiers: Dementia behavioral disturbance: without behavioral disturbance Qualified Code(s): F01.50 - Vascular dementia without behavioral disturbance Pneumonia Qualifiers: Pneumonia type: due to unspecified organism Laterality: right Lung location: unspecified part of lung Qualified Code(s): J18.9 - Pneumonia, unspecified organism - Departure Disposition: Still a patient Condition: Fair
[2019-10-03 15:40] LABS: Hematocrit 26.1 % (42.0-52.0); Hemoglobin 8.1 gm/dL (13.5-18.0); Mean Cell Volume 98.9 fl (78-100); Mean Corpuscular Hemoglobin 30.7 pg (27-31); Mean Platelet Volume 9.1 fl (8-11.3); Neutrophil # 8.6 K/mm3 (1.3-6.0); Neutrophil % 71.6 % (42-75.0); Platelet Count 432 K/mm3 (150-450); Red Blood Count 2.64 M/mm3 (4.7-6.0); Red Cell Distribution Width 13.9 % (11.5-14.0)
[2019-10-03 15:55] LABS: Albumin * 2.9 gm/dl (3.4-5.0); Anion Gap 11.4 mmol/L (6.8-13.8); BUN/Creatinine Ratio 19.2 (9.0-21.6); Bilirubin, Total 0.4 mg/dL (0.0-1.1); Ca. Corrected For Albumin 9.5 mg/dL (8.4-10.2); Calcium * 8.9 mg/dL (7.9-10.9); Carbon Dioxide 29.5 mmol/L (24-32.6); Potassium 3.9 mmol/L (3.4-4.6); Total Protein 6.9 gm/dL (6.2-8.2)
[2019-10-03] MEDS ORDERED: AZITHROMYCIN 250 MG TABLET PO STA (16:56)
[2019-10-03] MEDS: ACETAMINOPHEN 325 MG TABLET PO PRN ×2 (17:10→21:48)
[2019-10-03] MEDS ORDERED: ALBUTEROL SULFATE/IPRATROPIUM 3 ML NEBU IH PRN (17:43)
[2019-10-04] MEDS ORDERED: ALBUTEROL SULFATE/IPRATROPIUM 3 ML NEBU IH PRN (01:23)
--- NOTE | 2019-10-04 07:24 | HP ---
Chief Complaint - Chief Complaint Date of Service: 10/04/19 Time of Service: 01:24 Chief Complaint: Hip pain, cough History of Present Illness: 83-year-old male with advanced dementia presented to the ER after fall at the [place]. Patient came in unwilling to walk on his right side. X-rays of his pelvis and hips were negative for acute fractures. Chest x-ray though showed possible right lower lobe pneumonia developing. Patient mostly nonverbal, unwilling or unable to answer questions. Patient placed under observation for possible pneumonia and transferred to the floor. He was given Rocephin in the ER as well as azithromycin. Since being here his vital signs been stable and is been afebrile. Initial white count was 12.0 with no shift. His chem panel was within normal limits and his creatinine was at baseline. Patient currently resting comfortably in his bed. Medical History (Last Reviewed 10/03/19 @ 17:47 by Anastasia Moura RN) Dementia History of CVA (cerebrovascular accident) Onset Date: ~2015 History of MD (myocardial infarction) Onset Date: ~1994 History of prostate cancer Onset Date: ~1995 had radiation and prostatectomy Weakness of right hand History of fracture of pelvis Onset Date: ~2016 Surgical History: Surgical History (Last Reviewed 10/03/19 @ 17:47 by Anastasia Moura RN) H/O vasectomy Onset Date: ~1957 History of angioplasty Onset Date: ~1994 History of prostatectomy Onset Date: ~2000 Family History: Family History (Last Reviewed 10/03/19 @ 17:47 by Anastasia Moura RN) Father COPD (chronic obstructive pulmonary disease) Social History: (Last Reviewed 10/03/19 @ 17:49 by Anastasia Moura RN) Social History: Marital status: lives independently: Yes household members: spouse current occupational status: retired Highest education level completed: high school graduate Service: Yes branch: [employer] [place] status: retired Tobacco: Smoking Status: Former smoker Tobacco: How many years used: 50 Alcohol: alcohol intake: former Substance Use: substance use type: does not use Dietary Habits: caffeine: Yes Type: coffee Review Of Systems (GEN) - Review of Systems Additional Comments: Unable to obtain due to dementia. Patient unwilling to answer. Immunizations: IMMUNIZATION HX Immunizations Up to Date Yes History of Influenza Vaccine Yes Hx Pneumococcal Vaccination Yes Allergies/Adverse Reactions: Allergies Allergy/AdvReac Type Severity Reaction Status Date / Time morphine AdvReac Severe Other Verified 10/03/19 17:49 Home Medications: HOME MEDICATIONS Bifidobacterium infantis 1.5 billion cell capsule 4 mg PO DAILY 07/30/19 [Last Taken 09/13/19] apixaban 2.5 mg tablet 2.5 mg PO BID 07/30/19 [Last Taken 09/13/19] cholecalciferol (vitamin D3) 2,000 unit capsule 2,000 unit PO DAILY 07/30/19 [Last Taken 09/13/19] folic acid 1 mg tablet 1 mg PO DAILY 07/30/19 [Last Taken 09/13/19] ipratropium-albuterol 0.5 mg-3 mg(2.5 mg base)/3 mL nebulization soln 3 ml IH QID PRN ml 07/30/19 [Last Taken 09/14/19] thiamine HCl (vitamin B1) 100 mg tablet 100 mg PO DAILY 07/30/19 [Last Taken ] Aspirin [Aspirin Enteric Coated] 325 mg PO DAILY #30 tablet.dr 09/16/19 [Last Taken Unknown] Clopidogrel Bisulfate [Plavix] 75 mg PO DAILY tab 09/16/19 [Last Taken Unknown] Cyanocobalamin (Vitamin B-12) [Vitamin B-12] 1,000 mcg SUBLINGUAL DAILY #30 tab.subl 09/16/19 [Last Taken Unknown] Nut.tx.impaired Digest Fxn [Ensure Clear] 200 ml PO TID #90 liquid 09/16/19 [Last Taken Unknown] Vitamin B Comp W-C [Vitabee W/C] 1 tab PO DAILY #30 tab 09/16/19 [Last Taken Unknown] carvedilol 3.125 mg tablet 3.125 mg PO BID #60 tab 09/22/19 [Last Taken Unknown] enalapril maleate 5 mg tablet 5 mg PO DAILY #30 tab 09/22/19 [Last Taken Unknown] Rosuvastatin Calcium [Crestor] 20 mg PO HS 10/04/19 [Last Taken Unknown] Exam - Exam Vital Signs: Vital Signs - Last Taken Temp 36.8 C 10/04/19 06:43 Pulse 90 10/04/19 06:43 Resp 18 10/04/19 06:43 BP 116/51 10/04/19 06:43 Pulse Ox 96 10/04/19 06:43 Constitutional: Present: Somnolent, Elderly, Thin and frail. Absent: Alert, Oriented x3 Neck: Present: non-tender, supple Respiratory: Present: normal breath sounds - Though poor respiratory effort, no respiratory distress. Absent: crackles, wheezing Cardiovascular/Chest: Present: regular rate, rhythm, no edema Abdomen: Present: Normal bowel sounds, soft, nondistended /Rectal: Present: Exam deferred Extremity: Present: non-tender. Absent: lower extremity edema Skin Exam: Present: warm/dry. Absent: diaphoresis Appearance: Present: impaired insight Eye contact: Absent: cooperative, good eye contact Thoughts: Absent: auditory hallucinations, visual hallucinations Diagnostic Studies: Abnormal Lab Results 10/03/19 10/03/19 Range/Units 15:38 15:38 WBC 12.0 H (4.0-10.5) K/mm3 RBC 2.64 L (4.7-6.0) M/mm3 Hgb 8.1 L (13.5-18.0) gm/dL Hct 26.1 L (42.0-52.0) % MCHC 31.0 L (32-36) g/dl Immature Gran % (Auto) 0.50 H (0.001-0.429) % Immature Gran # (Auto) 0.06 H (0.000-0.0310) K/mm3 Lymphocytes % 15.6 L (20-51) % Monocytes % 9.7 H (0.0-9) % Neutrophils # 8.6 H (1.3-6.0) K/mm3 Monocytes # 1.2 H (0.0-1.0) k/mm3 Sodium 143 H (132-142) mmol/L Plasma Sodium 143 H (130-142) mmol/L BUN 29 H (6-23) mg/dL Creatinine 1.51 H (0.4-1.4) mg/dL Est GFR (Non-Af Amer) 47 L (60-130) mL/min ALT 17 L (19-67) U/L Albumin 2.9 L (3.4-5.0) gm/dl Laboratory Results WBC 12.0 K/mm3 (4.0-10.5) H 10/03/19 15:38 RBC 2.64 M/mm3 (4.7-6.0) L 10/03/19 15:38 Hgb 8.1 gm/dL (13.5-18.0) L 10/03/19 15:38 Hct 26.1 % (42.0-52.0) L 10/03/19 15:38 MCV 98.9 fl (78-100) 10/03/19 15:38 MCH 30.7 pg (27-31) 10/03/19 15:38 MCHC 31.0 g/dl (32-36) L 10/03/19 15:38 RDW 13.9 % (11.5-14.0) 10/03/19 15:38 Plt Count 432 K/mm3 (150-450) 10/03/19 15:38 MPV 9.1 fl (8-11.3) 10/03/19 15:38 Immature Gran % (Auto) 0.50 % (0.001-0.429) H 10/03/19 15:38 Immature Gran # (Auto) 0.06 K/mm3 (0.000-0.0310) H 10/03/19 15:38 Neutrophils % 71.6 % (42-75.0) 10/03/19 15:38 Lymphocytes % 15.6 % (20-51) L 10/03/19 15:38 Monocytes % 9.7 % (0.0-9) H 10/03/19 15:38 Eosinophils % 1.9 % (0.0-3.0) 10/03/19 15:38 Basophils % 0.7 % (0.0-1.0) 10/03/19 15:38 Nucleated RBC % 0.0 k/mm3 (0-1) 10/03/19 15:38 Neutrophils # 8.6 K/mm3 (1.3-6.0) H 10/03/19 15:38 Lymphocytes # 1.87 k/mm3 (1.5-3.5) 10/03/19 15:38 Monocytes # 1.2 k/mm3 (0.0-1.0) H 10/03/19 15:38 Eosinophils # 0.2 k/mm3 (0.0-0.7) 10/03/19 15:38 Absolute Basophils 0.1 k/mm3 (0.0-0.1) 10/03/19 15:38 Sodium 143 mmol/L (132-142) H 10/03/19 15:38 Plasma Sodium 143 mmol/L (130-142) H 10/03/19 15:38 Potassium 3.9 mmol/L (3.4-4.6) 10/03/19 15:38 Chloride 106 mmol/L (97-106) 10/03/19 15:38 Carbon Dioxide 29.5 mmol/L (24-32.6) 10/03/19 15:38 Anion Gap 11.4 mmol/L (6.8-13.8) 10/03/19 15:38 BUN 29 mg/dL (6-23) H 10/03/19 15:38 Creatinine 1.51 mg/dL (0.4-1.4) H 10/03/19 15:38 Est GFR (Non-Af Amer) 47 mL/min (60-130) L 10/03/19 15:38 BUN/Creatinine Ratio 19.2 (9.0-21.6) 10/03/19 15:38 Random Glucose 97 mg/dL (70-110) 10/03/19 15:38 Lactic Acid, Venous 1.1 mmol/L (0.4-2.0) 10/03/19 15:35 Calcium 8.9 mg/dL (7.9-10.9) 10/03/19 15:38 Calcium Adj for Albumin 9.5 mg/dL (8.4-10.2) 10/03/19 15:38 Total Bilirubin 0.4 mg/dL (0.0-1.1) 10/03/19 15:38 AST 14 U/L (0-48) 10/03/19 15:38 ALT 17 U/L (19-67) L 10/03/19 15:38 Alkaline Phosphatase 114 U/L (50-170) 10/03/19 15:38 Total Protein 6.9 gm/dL (6.2-8.2) 10/03/19 15:38 Albumin 2.9 gm/dl (3.4-5.0) L 10/03/19 15:38 Assessment/Plan - Narrative Narrative: Unable to obtain history from patient. Patient currently resting comfortably in his bed. Patient is not coughing and his vital signs are stable, has been afebrile since being here. He is not hypoxic. He does have history of CVA and is currently being anticoagulated with Eliquis. We will continue azithromycin. Repeat BMP to monitor kidney function though he appears to be at baseline. Restart his home medications. Regular diet. No DVT prophylaxis needed due to anticoagulation. Nurse will call with questions or concerns. - Assessment/Plan (1) Pneumonia Problem: Suspected Qualifiers: Pneumonia type: due to unspecified organism Laterality: right Lung location: unspecified part of lung Qualified Code(s): J18.9 - Pneumonia, unspecified organism (2) Vascular dementia Problem: Chronic Qualifiers: Dementia behavioral disturbance: without behavioral disturbance (3) Dysphagia Problem: Chronic Qualifiers: Dysphagia type: oropharyngeal phase Qualified Code(s): R13.12 - Dysphagia, oropharyngeal phase (4) History of CVA (cerebrovascular accident) Problem: Chronic
[2019-10-04] MEDS ORDERED: DEXTROSE 5% IV SCH (08:00)
[2019-10-04] MEDS ORDERED: POTASSIUM CHLORIDE IV SCH (08:00)
[2019-10-04] MEDS ORDERED: [UNRECOGNIZED DRUG - OTHER] IV SCH (08:00)
[2019-10-04] MEDS ORDERED: BIFIDOBACTERIUM INFANTIS 4 MG PO SCH (09:00)
[2019-10-04] MEDS ORDERED: NUT TX IMPAIRED DIGEST FXN PO SCH (09:00)
[2019-10-04] MEDS ORDERED: POTASSIUM CHLORIDE 10 MEQ in DEXTROSE 5%-0.5 NORMAL SALINE 1,000 ML IV SCH (09:00)
[2019-10-04] MEDS ORDERED: [UNRECOGNIZED DRUG - OTHER] PO SCH (09:00)
[2019-10-04] MEDS: ASPIRIN 325 MG TABLET.DR PO SCH (10:02)
[2019-10-04] MEDS: CARVEDILOL 3.125 MG TABLET PO SCH ×2 (10:02→20:09)
[2019-10-04] MEDS: CLOPIDOGREL BISULFATE 75 MG TABLET PO SCH (10:03)
[2019-10-04] MEDS: ENALAPRIL MALEATE 5 MG TABLET PO SCH (10:03)
[2019-10-04] MEDS: CHOLECALCIFEROL 1,000 UNIT CAPSULE PO SCH (10:04)
[2019-10-04] MEDS: FOLIC ACID 1 MG TABLET PO SCH (10:05)
[2019-10-04] MEDS: APIXABAN 2.5 MG TABLET PO SCH ×2 (10:05→20:10)
[2019-10-04] MEDS: ACETAMINOPHEN 325 MG TABLET PO PRN ×2 (10:06→16:21)
[2019-10-04] MEDS: AZITHROMYCIN 250 MG TABLET PO SCH (17:26)
[2019-10-04] MEDS ORDERED: ROSUVASTATIN CALCIUM 20 MG TABLET PO SCH ×2 (21:00)
[2019-10-05 07:47] LABS: Anion Gap 12.3 mmol/L (6.8-13.8); BUN/Creatinine Ratio 22.9 (9.0-21.6); Calcium * 9.1 mg/dL (7.9-10.9); Carbon Dioxide 28.9 mmol/L (24-32.6); Estimated Creat Clear 31.5; Potassium 4.2 mmol/L (3.4-4.6)
[2019-10-05] MEDS: FOLIC ACID 1 MG TABLET PO SCH (09:12)
[2019-10-05] MEDS: APIXABAN 2.5 MG TABLET PO SCH (09:12)
[2019-10-05] MEDS: CHOLECALCIFEROL 1,000 UNIT CAPSULE PO SCH (09:12)
[2019-10-05] MEDS: CARVEDILOL 3.125 MG TABLET PO SCH (09:12)
[2019-10-05] MEDS: ASPIRIN 325 MG TABLET.DR PO SCH (09:12)
[2019-10-05] MEDS: CLOPIDOGREL BISULFATE 75 MG TABLET PO SCH (09:12)
[2019-10-05] MEDS: ENALAPRIL MALEATE 5 MG TABLET PO SCH (09:12)
[2019-10-05] MEDS: AZITHROMYCIN 250 MG TABLET PO SCH (09:14)
[2019-10-05] MEDS ORDERED: NORMAL SALINE 1,000 ML IV ONE (09:40)
--- NOTE | 2019-10-05 14:26 | DS ---
(1) Pneumonia Problem: Suspected Qualifiers: Pneumonia type: due to unspecified organism Laterality: right Lung location: unspecified part of lung Qualified Code(s): J18.9 - Pneumonia, unspecified organism (2) Vascular dementia Problem: Chronic Qualifiers: Dementia behavioral disturbance: without behavioral disturbance (3) Dysphagia Problem: Chronic Qualifiers: Dysphagia type: oropharyngeal phase Qualified Code(s): R13.12 - Dysphagia, oropharyngeal phase (4) History of CVA (cerebrovascular accident) Problem: Chronic (5) Chronic kidney disease Problem: Acute Date of Discharge:: 10/05/19 Hospital Course: Mr. Morelos is an 83-year-old pleasantly demented individual who came to the ER following a ground-level fall resulting in hip pain. X-ray negative for acute fracture but advanced arthritis seen in the right hip. CBC obtained showed him to have a white count at 12.0. He was also slightly hypoxic in the ER and a chest x-ray was obtained which showed possible forming right lower lobe infiltrate. Patient admitted under observation due to hypoxia and advanced dementia where it was thought that his and I barely care for him at this time. He was given a shot of Rocephin and started on a azithromycin. While being here he has been afebrile, his hypoxia has resolved, his vital signs been stable and he has been afebrile. He is feeling much better today and is much more conversant than he was yesterday after being admitted. He is alert and oriented x2, wanting to go home. He denies chest pain, cough, shortness of breath. He is still endorses some right lower extremity pain in his hip. Patient discharged home with chronic medications resumed, no changes to this other than will continue azithromycin for total of 5 days. He is to follow with his PCP in 1 to 2 weeks. Of note patient does have chronic kidney disease, creatinine at baseline upon discharge. Procedures Performed: none Results and Findings: Pending Mircobiology Results 10/03/19 16:50 Blood Blood Culture - Preliminary NO GROWTH 24 HOURS 10/03/19 15:35 Blood Blood Culture - Preliminary NO GROWTH 24 HOURS Lab Pending Results 10/03/19 15:35: Lactic Acid, Venous 1.1 10/03/19 15:38: WBC 12.0 H, RBC 2.64 L, Hgb 8.1 L, Hct 26.1 L, MCV 98.9, MCH 30.7, MCHC 31.0 L, RDW 13.9, Plt Count 432, MPV 9.1, Immature Gran % (Auto) 0.50 H, Immature Gran # (Auto) 0.06 H, Neutrophils % 71.6, Lymphocytes % 15.6 L, Monocytes % 9.7 H, Eosinophils % 1.9, Basophils % 0.7, Nucleated RBC % 0.0, Neutrophils # 8.6 H, Lymphocytes # 1.87, Monocytes # 1.2 H, Eosinophils # 0.2, Absolute Basophils 0.1 10/03/19 15:38: Sodium 143 H, Plasma Sodium 143 H, Potassium 3.9, Chloride 106, Carbon Dioxide 29.5, Anion Gap 11.4, BUN 29 H, Creatinine 1.51 H, Est GFR (Non- Af Amer) 47 L, BUN/Creatinine Ratio 19.2, Random Glucose 97, Calcium 8.9, Calcium Adj for Albumin 9.5, Total Bilirubin 0.4, AST 14, ALT 17 L, Alkaline Phosphatase 114, Total Protein 6.9, Albumin 2.9 L 10/05/19 07:22: Sodium 145 H, Plasma Sodium 145 H, Potassium 4.2, Chloride 108 H, Carbon Dioxide 28.9, Anion Gap 12.3, BUN 38 H, Creatinine 1.66 H, Est GFR (Non-Af Amer) 42 L, BUN/Creatinine Ratio 22.9 H, Random Glucose 116 H, Calcium 9.1 10/05/19 13:50: Creatinine 1.63 H Discharge Location: Home Disposition: Home self-care Condition: Fair Discharge Activity: Activity as tolerated Discharge Diet: General/regular food Referrals: Marlon Yanes MD [Primary Care Provider] - One Week Prescriptions (Any new or edited meds): Azithromycin [Zithromax] 250 mg PO DAILY #3 tab Transmission Status: Pending to [facility], [place], [place] Complete Home Medications List: Complete Home Medication List: Bifidobacterium infantis 1.5 billion cell capsule 4 mg PO DAILY 07/30/19 apixaban 2.5 mg tablet 2.5 mg PO BID 07/30/19 cholecalciferol (vitamin D3) 2,000 unit capsule 2,000 unit PO DAILY 07/30/19 folic acid 1 mg tablet 1 mg PO DAILY 07/30/19 ipratropium-albuterol 0.5 mg-3 mg(2.5 mg base)/3 mL nebulization soln 3 ml IH QID PRN ml 07/30/19 thiamine HCl (vitamin B1) 100 mg tablet 100 mg PO DAILY 07/30/19 Aspirin [Aspirin Enteric Coated] 325 mg PO DAILY #30 tablet.dr 09/16/19 Clopidogrel Bisulfate [Plavix] 75 mg PO DAILY tab 09/16/19 Cyanocobalamin (Vitamin B-12) [Vitamin B-12] 1,000 mcg SUBLINGUAL DAILY #30 tab.subl 09/16/19 Nut.tx.impaired Digest Fxn [Ensure Clear] 200 ml PO TID #90 liquid 09/16/19 Vitamin B Comp W-C [Vitabee W/C] 1 tab PO DAILY #30 tab 09/16/19 carvedilol 3.125 mg tablet 3.125 mg PO BID #60 tab 09/22/19 enalapril maleate 5 mg tablet 5 mg PO DAILY #30 tab 09/22/19 Rosuvastatin Calcium [Crestor] 20 mg PO HS 10/04/19 Azithromycin [Zithromax] 250 mg PO DAILY #3 tab 10/05/19
[2019-10-05 15:10] VITALS: BP 121/56
== END 2019-10-05 15:40 | disposition home or self-care (01) ==
LOC: ER 14:31 → MS 16:48 → INTOOBSV 16:48 → MS 17:40
PROVIDERS: ADMIT Allergy & Immunology; ATTEND Allergy & Immunology
CPT/HCPCS: 36415; 71010; 71045; 73522; 80048; 80053; 82565; 83605; 85025; 87040; 96365; 96366; 97161; 99284; 99285; G0378

== ENCOUNTER 2019-10-10 16:26 | Inpatient (IN) ==
--- NOTE | 2019-10-10 16:48 | ERNOTE ---
Medical Problem HPI - Narrative Date of Service: 10/10/19 - General Chief Complaint: General Assessment Time Seen by Provider: 10/10/19 16:30 Source: family Exam Limitations: dementia - Immun/Allergies/Home Medications Immunizations: IMMUNIZATION HX Immunizations Up to Date Yes History of Influenza Vaccine Yes Hx Pneumococcal Vaccination Yes Allergies/Adverse Reactions: Allergies morphine Adverse Reaction (Severe, Verified 10/10/19 16:40) Other Home Medications: HOME MEDICATIONS Bifidobacterium infantis 1.5 billion cell capsule 4 mg PO DAILY 07/30/19 [Last Taken 09/13/19] apixaban 2.5 mg tablet 2.5 mg PO BID 07/30/19 [Last Taken 09/13/19] cholecalciferol (vitamin D3) 2,000 unit capsule 2,000 unit PO DAILY 07/30/19 [Last Taken 09/13/19] folic acid 1 mg tablet 1 mg PO DAILY 07/30/19 [Last Taken 09/13/19] ipratropium-albuterol 0.5 mg-3 mg(2.5 mg base)/3 mL nebulization soln 3 ml IH QID PRN ml 07/30/19 [Last Taken 09/14/19] thiamine HCl (vitamin B1) 100 mg tablet 100 mg PO DAILY 07/30/19 [Last Taken 09/13/19] Aspirin [Aspirin Enteric Coated] 325 mg PO DAILY #30 tablet.dr 09/16/19 [Last Taken Unknown] Clopidogrel Bisulfate [Plavix] 75 mg PO DAILY tab 09/16/19 [Last Taken Unknown] Cyanocobalamin (Vitamin B-12) [Vitamin B-12] 1,000 mcg SUBLINGUAL DAILY #30 tab.subl 09/16/19 [Last Taken Unknown] Nut.tx.impaired Digest Fxn [Ensure Clear] 200 ml PO TID #90 liquid 09/16/19 [Last Taken Unknown] Vitamin B Comp W-C [Vitabee W/C] 1 tab PO DAILY #30 tab 09/16/19 [Last Taken Unknown] carvedilol 3.125 mg tablet 3.125 mg PO BID #60 tab 09/22/19 [Last Taken Unknown] enalapril maleate 5 mg tablet 5 mg PO DAILY #30 tab 09/22/19 [Last Taken Unknown] Rosuvastatin Calcium [Crestor] 20 mg PO HS 10/04/19 [Last Taken Unknown] megestrol 625 mg/5 mL oral suspension 5 ml PO DAILY #150 ml 10/10/19 [Last Taken Unknown] - History of Present History Narrative: The patient is a 83 year old male who presents from clinic visit with reports of anemia, Hgb 5.9. Patient had a reported fall 2 weeks ago with continued declined since. There are associated symptoms of guarding and non- weight bearing to right leg/hip, decreased appetite and fatigue. The patient is unable to localize pain due to dementia. There are alleviating factors of immobilization. There are aggravating factors of weight bearing. Previous treatments have included: none. The past medical history includes: NM, prostate ca, CVA and dementia. The social history is positive for former smoker. The patient has had no known ill contacts. Patient sent to ER from 's office after visit without outpatient lab evaluation showing patient to be anemic. Report from that patient fell 2 weeks ago with negative xray as well as gradual decline to appetite and activity and ability to ambulate with use of walker due to weakness and right hip pain. Patient was discharged on 10/05/19 after being hospitalized following ground [place] fall and right hip pain. During the ER course patient was also hypoxic and found to have a possible right lower lobe infiltrate and treated for presumed pneumonia with improvement to his hypoxia as well as mentation. Review of Systems - Narrative Narrative: Difficult to obtain ROS from patient due to dementia and clinical presentation, ROS obtained from . - Review of Systems Constitutional: Present: recent illness, weakness, fatigue. Absent: fever ENT: Present: no symptoms reported. Absent: nasal drainage Respiratory: Absent: cough Gastrointestinal/Abdominal: Present: eating less, drinking less. Absent: vomiting, diarrhea Genitourinary: Present: decreased urinary output Musculoskeletal: Present: joint pain - right hip Skin: Present: no symptoms reported. Absent: rash Neurological: Present: weakness All Other Systems: All systems neg except as marked Medical History (Last Reviewed 10/10/19 @ 16:45 by TOYIN Loyd) Dementia History of CVA (cerebrovascular accident) Onset Date: ~2015 History of NM (myocardial infarction) Onset Date: ~1994 History of prostate cancer Onset Date: ~1995 had radiation and prostatectomy Weakness of right hand History of fracture of pelvis Onset Date: ~2016 Surgical History: Surgical History (Last Reviewed 10/10/19 @ 16:45 by TOYIN Loyd) H/O vasectomy Onset Date: ~1957 History of angioplasty Onset Date: ~1994 History of prostatectomy Onset Date: ~2000 Family History: Family History (Last Reviewed 10/10/19 @ 16:45 by TOYIN Loyd) Father COPD (chronic obstructive pulmonary disease) Social History: (Last Reviewed 10/10/19 @ 16:45 by TOYIN Loyd) Social History: Marital status: lives independently: Yes household members: spouse current occupational status: retired Highest education level completed: high school graduate Service: Yes branch: [employer] status: retired Tobacco: Smoking Status: Former smoker Tobacco: How many years used: 50 Alcohol: alcohol intake: former Substance Use: substance use type: does not use Dietary Habits: caffeine: Yes Type: coffee Physical Exam - Physical Exam General Appearance: Present: no apparent distress, other - malaised Head Exam: Present: normal inspection Eye Exam: Conjunctivae pale: bilateral Neck: Present: normal inspection Respiratory: Present: no respiratory distress, no accessory muscle use, chest nontender, rhonchi Cardiovascular/Chest: Present: regular rate, rhythm, no murmur Peripheral Pulses: N=norm/S=strong/W=weak/B=bound/A=absent: Dorsalis-pedis (R): Weak - present with doppler Gastrointestinal/Abdominal: Present: normal bowel sounds, nontender, nondistended, soft, no organomegaly Neurological Exam: Present: alert, disoriented to situation. Absent: disoriented to time Skin Exam: Present: warm/dry, pallor Progress - Date and Time Seen: Date and Time: 10/10/19 17:07 2v CXR ordered, techs unable to complete due to patient condition, will proceed with one view chest. 10/10/19 17:20 CT images sent to via [employer]. 10/10/19 17:32 Case discussed with , will admit for acute due to anemia, right hip fx and acute renal insuff. - Results and Orders Patient's Lab Results:: I have reviewed the patient's lab results. Results and Orders: Review of lab results obtained during outpatient testing today. Laboratory Tests 10/10/19 10/10/19 14:59 14:59 WBC 12.1 H Hgb 5.9 L* D Hct 19.3 L* D Plt Count 480 H Sodium 146 H Potassium 4.7 H Chloride 110 H BUN 74 H D Creatinine 2.03 H D Est GFR (Non-Af Amer) 33 L D Random Glucose 130 H - Vital Signs Patient's Vital Signs:: I have reviewed the patient's vital signs. Vital Signs: Vital Signs 10/10/19 16:36 Temperature 36.9 C Pulse Rate 85 Respiratory Rate 19 Blood Pressure 109/44 - EKG EKG #1 EKG: NSR - rate 90, artifact EKG read: Reviewed by me - X-Ray X-Ray #1 X-Ray: chest Interpretation: Reviewed by me X-ray Comments: IMPRESSION: No acute cardiopulmonary process. Electronically signed by Katerina Allen D.O.. - CT/Ultrasound CT/Ultrasound Narrative: IMPRESSION: Osteopenia. Acute appearing displaced right transcervical right femoral neck fracture. Age-indeterminate fractures of the high right superior pubic ramus and right inferior pubic ramus. Electronically signed by Katerina Allen D.O.. - Progress/Reassessment Chief Complaint: General Assessment Progress:: Unchanged Departure Clinical Impression: Displaced fracture of right femoral neck, Acute on chronic renal insufficiency Anemia Qualifiers: Anemia type: unspecified type Qualified Code(s): D64.9 - Anemia, unspecified - Departure Disposition: Still a patient Condition: Stable
[2019-10-10] MEDS ORDERED: ACETAMINOPHEN 325 MG TABLET PO PRN (17:44)
[2019-10-10] MEDS ORDERED: ALBUTEROL SULFATE/IPRATROPIUM 3 ML NEBU IH PRN (17:46)
[2019-10-10] MEDS: 0.5 NORMAL SALINE 1,000 ML IV PRN (19:15)
[2019-10-10] MEDS: CARVEDILOL 3.125 MG TABLET PO SCH (20:57)
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
[2019-10-11 05:59] LABS: Mean Cell Volume 100.7 fl (78-100); Mean Corpuscular Hemoglobin 30.9 pg (27-31); Mean Corpuscular Hgb Conc 30.7 g/dl (32-36); Mean Platelet Volume 8.8 fl (8-11.3); NRBC# 0.1 k/mm3 (0-1); Neutrophil # 5.8 K/mm3 (1.3-6.0); Platelet Count 422 K/mm3 (150-450); Red Blood Count 1.52 M/mm3 (4.7-6.0); Red Cell Distribution Width 14.7 % (11.5-14.0); White Blood Count 8.4 K/mm3 (4.0-10.5)
[2019-10-11 06:04] LABS: Hematocrit 15.3 % (42.0-52.0); Hemoglobin 4.7 gm/dL (13.5-18.0)
[2019-10-11 06:19] LABS: Albumin * 2.4 gm/dl (3.4-5.0); Anion Gap 18.9 mmol/L (6.8-13.8); BUN/Creatinine Ratio 41.6 (9.0-21.6); Bilirubin, Total 0.3 mg/dL (0.0-1.1); Ca. Corrected For Albumin 9.8 mg/dL (8.4-10.2); Calcium * 8.8 mg/dL (7.9-10.9); Carbon Dioxide 21.2 mmol/L (24-32.6); Potassium 4.1 mmol/L (3.4-4.6); Total Protein 5.8 gm/dL (6.2-8.2)
[2019-10-11] MEDS: 0.5 NORMAL SALINE 1,000 ML IV PRN (06:52)
[2019-10-11 07:16] LABS: Urine Bilirubin Negative (NEGATIVE); Urine Ketone Negative (NEGATIVE); Urine Nitrite Negative (NEGATIVE); Urine Protein Negative (NEGATIVE); Urine Urobilinogen Normal (NORMAL); Urine pH 5.5 pH (5.0-7.0)
[2019-10-11 07:47] LABS: Urine Appearance Slightly Cloudy (CLEAR); Urine Bacteria TRACE; Urine Blood 10 /ul (NEGATIVE); Urine Color Yellow; Urine Mucus Few - 1+; Urine RBC 0-5 /hpf (0-5); Urine WBC 0-5 /hpf (0-5)
[2019-10-11] MEDS: CARVEDILOL 3.125 MG TABLET PO SCH ×2 (09:35→20:49)
[2019-10-11 19:50] LABS: Hematocrit 32.1 % (42.0-52.0); Hemoglobin 10.2 gm/dL (13.5-18.0)
[2019-10-12] MEDS ORDERED: FUROSEMIDE 10 MG/ML VIAL IV STA (01:37)
[2019-10-12] MEDS: 0.5 NORMAL SALINE 1,000 ML IV PRN (01:37)
[2019-10-12 06:27] LABS: Hematocrit 30.6 % (42.0-52.0); Hemoglobin 9.7 gm/dL (13.5-18.0); Mean Cell Volume 93.9 fl (78-100); Mean Corpuscular Hemoglobin 29.8 pg (27-31); Mean Corpuscular Hgb Conc 31.7 g/dl (32-36); Mean Platelet Volume 8.7 fl (8-11.3); Platelet Count 355 K/mm3 (150-450); Red Blood Count 3.26 M/mm3 (4.7-6.0); Red Cell Distribution Width 18.6 % (11.5-14.0); White Blood Count 12.6 K/mm3 (4.0-10.5)
[2019-10-12 06:43] LABS: Total Cells Counted 100
[2019-10-12 06:49] LABS: Albumin * 2.3 gm/dl (3.4-5.0); Anion Gap 15.7 mmol/L (6.8-13.8); BUN/Creatinine Ratio 41.1 (9.0-21.6); Bilirubin, Total 0.5 mg/dL (0.0-1.1); Ca. Corrected For Albumin 9.8 mg/dL (8.4-10.2); Calcium * 8.8 mg/dL (7.9-10.9); Carbon Dioxide 22.8 mmol/L (24-32.6); Potassium 3.5 mmol/L (3.4-4.6); Total Protein 5.9 gm/dL (6.2-8.2)
[2019-10-12 07:02] LABS: Band 36 % (0-2.0); Eosinophil 2 % (0-3); Immature Granulocyte 2 (0-1); Lymphocyte 19 % (20-51); Microcytosis 1+; Monocyte 2 % (0-9); Neutrophil 39 % (42-75); Neutrophil # 4.9 K/mm3 (1.3-6.0); Platelet Estimate Normal (NORMAL); Polychromasia Trace
[2019-10-12] MEDS: AMPICILLIN SODIUM/SULBACTAM NA 1.5 GM in NORMAL SALINE 100 ML IV SCH ×3 (07:41→18:50)
--- NOTE | 2019-10-12 08:26 | PN ---
Progess Note - Interim Date: 10/12/19 Time: 08:18 Narrative: 10/12/19 08:18 Ortho Progress Note: Had a lengthy discussion with the patient's yesterday regarding treatment options for his displaced femoral neck fracture. He has severe dementia and multiple medical comorbidities including malnutrition, renal failure, and recent pneumonia. He is currently on O2 and antibiotics for suspected aspiration. He is a very high risk surgical candidate. Treatment options include non-operative management with protected weight bearing, pain control, and other comfort measures vs hemiarthroplasty. The goals of surgery would be mobilization and pain control. There is a high risk of medical complications with bedrest or with surgery. I counseled the patient's that it depends on what the family's goals are for the patient. I explained that there is no guarantee that surgery will return him to his previous functional level or even that he will make it through surgery or the immediate postoperative period. I briefly explained the surgery itself, the risks, and the expected postoperative recovery. She is going to discuss things with the rest of the family and they will make a decision. I will continue to follow the patient and provide care as family dictates.
--- NOTE | 2019-10-12 08:34 | PN ---
Subjective - Date and Time Seen Date: 10/12/19 Time: 08:26 Subjective Narrative: Patient aspirated yesterday afternoon, and required oxygen overnight. Family members are discussing whether or not to proceed with surgery. Objective - Review of Systems Generalized/Overall Review: Reports: No Symptoms Reported - Unable to obtain ROS due to mentation - Vitals Vitals: Last Vital Signs Temp 37.4 C 10/12/19 02:00 Pulse 98 10/12/19 07:04 Resp 24 H 10/12/19 02:00 BP 102/38 10/12/19 07:04 Pulse Ox 93 10/12/19 07:39 - Abnormal Lab Findings Abnormal Lab Findings: Abnormal Lab Results 10/10/19 10/11/19 10/12/19 Range/Units 17:49 19:45 06:30 WBC 12.6 H D (4.0-10.5) K/mm3 RBC 3.26 L (4.7-6.0) M/mm3 Hgb 10.2 L 9.7 L (13.5-18.0) gm/dL Hct 32.1 L 30.6 L (42.0-52.0) % MCHC 31.7 L (32-36) g/dl RDW 18.6 H (11.5-14.0) % Neutrophils % (Manual) 39 L (42-75) % Band Neuts % (Manual) 36 H (0-2.0) % Lymphocytes % (Manual) 19 L (20-51) % Immature Granulocytes 2 H (0-1) Nucleated RBCs 8.0 H (0-1) % Sodium (132-142) mmol/L Plasma Sodium (130-142) mmol/L Chloride (97-106) mmol/L Carbon Dioxide (24-32.6) mmol/L Anion Gap (6.8-13.8) mmol/L BUN (6-23) mg/dL Creatinine (0.4-1.4) mg/dL Est GFR (Non-Af Amer) (60-130) mL/min BUN/Creatinine Ratio (9.0-21.6) ALT (19-67) U/L Total Protein (6.2-8.2) gm/dL Albumin (3.4-5.0) gm/dl Crossmatch See Detail 10/12/19 Range/Units 06:35 WBC (4.0-10.5) K/mm3 RBC (4.7-6.0) M/mm3 Hgb (13.5-18.0) gm/dL Hct (42.0-52.0) % MCHC (32-36) g/dl RDW (11.5-14.0) % Neutrophils % (Manual) (42-75) % Band Neuts % (Manual) (0-2.0) % Lymphocytes % (Manual) (20-51) % Immature Granulocytes (0-1) Nucleated RBCs (0-1) % Sodium 149 H (132-142) mmol/L Plasma Sodium 149 H (130-142) mmol/L Chloride 114 H (97-106) mmol/L Carbon Dioxide 22.8 L (24-32.6) mmol/L Anion Gap 15.7 H (6.8-13.8) mmol/L BUN 81 H (6-23) mg/dL Creatinine 1.97 H (0.4-1.4) mg/dL Est GFR (Non-Af Amer) 35 L (60-130) mL/min BUN/Creatinine Ratio 41.1 H (9.0-21.6) ALT 15 L (19-67) U/L Total Protein 5.9 L (6.2-8.2) gm/dL Albumin 2.3 L (3.4-5.0) gm/dl Crossmatch - Exam Constitutional: Present: No distress, Elderly, Thin and frail Respiratory: Present: normal breath sounds, no respiratory distress, other - Wearing 3L O2 via nasal cannula Cardiovascular/Chest: Present: regular rate, rhythm Abdomen: Present: soft Extremity: Absent: lower extremity edema Thoughts: Present: other - Does not interact or respond to questions Assessment/Plan - Problems/Diagnosis (1) Displaced fracture of right femoral neck Problem: Acute Narrative: Discussions have been made with patient's to determine treatment goals. CT done on admission showed "Acute appearing displaced right transcervical right femoral neck fracture. Age-indeterminate fractures of the high right superior pubic ramus and right inferior pubic ramus." Using the NSQIP surgical risk calculator, he is at above average risk for any complication. He is above aver age risk for pneumonia, UTI, sepsis, or . He is frail, demented, and has had poor po intake. BMI is only 14.7. Yesterday afternoon, he aspirated while eating, and developed tachypnea, tachycardia, and has required oxygen overnight, so aspiration pneumonia is highly suspected. He is even more high risk today than he was yesterday. He has been started on antibiotics. Patient is daughter is coming this morning, and will have a conversation with her about treatment goals, and will make a decision regarding surgical repair of his fracture. (2) Aspiration pneumonia Problem: Suspected Narrative: He had an episode of choking while eating yesterday, and subsequently developed tachypnea, tachycardia, and decreased oxygenation. He was requiring oxygen gin via nasal cannula, currently 3 L. Unasyn was started this morning. He received a transfusion for severe anemia yesterday, and his blood pressure increased after those completed, but his blood pressure is again decreased this morning we will hold home Coreg and enalapril. (3) Anemia Problem: Acute Qualifiers: Anemia type: unspecified type Qualified Code(s): D64.9 - Anemia, unspecified Narrative: He had profound anemia, down to 4.7. He was given only 2 units PRBCs yesterday, and hemoglobin unexpectedly increased to 10.2. Is 9.7 on this morning's check. We will continue to hold his Eliquis. (4) Vascular dementia Problem: Chronic Qualifiers: Dementia behavioral disturbance: without behavioral disturbance Qualified Code(s): F01.50 - Vascular dementia without behavioral disturbance Narrative: He is not being given any sedatives, but is somnolent. suspect delirium due to his dementia, recent injury, and multiple comorbidites. His reports a decline in his condition over the last couple of months. We discussed potential hospice benefits yesterday, and she is considering this. (5) Protein-calorie malnutrition, severe Problem: Chronic (6) Systolic and diastolic CHF, chronic Problem: Chronic (7) Acute on chronic renal insufficiency Problem: Acute Narrative: Creatinine of 1.97 today. We do not have many previous labs on him, as they just moved to the area in August, but his baseline appears to be around 1.4. (8) Hypernatremia Problem: Acute (9) Hyperkalemia Problem: Resolved Narrative: Potassium 3.5 today.
[2019-10-12] MEDS: CARVEDILOL 3.125 MG TABLET PO SCH (08:54)
[2019-10-12] MEDS ORDERED: ENALAPRIL MALEATE 5 MG TABLET PO SCH (09:00)
--- NOTE | 2019-10-12 11:54 | PN ---
Progess Note - Interim Date: 10/12/19 Time: 11:52 Narrative: 10/12/19 11:52 Discussed goals of care with patient's and daughter. They have decided not to pursue surgery, since it would not likely improve his quality of life. They are interested in continuing fluids and antibiotics for now, and speaking with hospice providers. Referral has been placed, and will restart 80 cc/hr 1/2 NS.
[2019-10-13] MEDS: AMPICILLIN SODIUM/SULBACTAM NA 1.5 GM in NORMAL SALINE 100 ML IV SCH ×4 (00:38→19:03)
[2019-10-13 06:31] LABS: Hematocrit 30.2 % (42.0-52.0); Hemoglobin 9.5 gm/dL (13.5-18.0); Mean Cell Volume 93.8 fl (78-100); Mean Corpuscular Hemoglobin 29.5 pg (27-31); Mean Corpuscular Hgb Conc 31.5 g/dl (32-36); Mean Platelet Volume 8.9 fl (8-11.3); Platelet Count 442 K/mm3 (150-450); Red Blood Count 3.22 M/mm3 (4.7-6.0); Red Cell Distribution Width 19.7 % (11.5-14.0); White Blood Count 21.9 K/mm3 (4.0-10.5)
[2019-10-13 06:33] LABS: Total Cells Counted 100
[2019-10-13 06:41] LABS: Anion Gap 18.5 mmol/L (6.8-13.8); BUN/Creatinine Ratio 39.9 (9.0-21.6); Bilirubin, Total 0.5 mg/dL (0.0-1.1); Ca. Corrected For Albumin 10.3 mg/dL (8.4-10.2); Carbon Dioxide 21.9 mmol/L (24-32.6); Potassium 3.4 mmol/L (3.4-4.6); Total Protein 6.1 gm/dL (6.2-8.2)
[2019-10-13 06:53] LABS: Anisocytosis 1+; Band 22 % (0-2.0); Lymphocyte 8 % (20-51); Microcytosis 1+; Monocyte 7 % (0-9); Neutrophil 63 % (42-75); Neutrophil # 13.8 K/mm3 (1.3-6.0); Platelet Estimate Normal (NORMAL)
[2019-10-13 06:54] LABS: Polychromasia 1+
[2019-10-13] MEDS: 0.5 NORMAL SALINE 1,000 ML IV PRN (08:08)
[2019-10-13] MEDS ORDERED: DEXTROSE 5 % IN WATER 1,000 ML IV PRN (08:12)
[2019-10-13] MEDS ORDERED: POTASSIUM CHLORIDE 10 MEQ in DEXTROSE 5 % IN WATER 1,000 ML IV PRN ×2 (08:14)
[2019-10-13] MEDS: POTASSIUM CHLORIDE 10 MEQ in DEXTROSE 5 % IN WATER 1,000 ML IV SCH ×4 (09:12→19:04)
[2019-10-13] MEDS ORDERED: ACETAMINOPHEN 650 MG SUPP.RECT RC PRN (12:12)
--- NOTE | 2019-10-13 12:28 | PN ---
Subjective - Date and Time Seen Date: 10/13/19 Time: 12:13 Subjective Narrative: [patient is obtunded. opened his eyes from time to time while I was in the room. his spouse was also present. she said he will sometimes say yes or no, but not more than that. chart reviewed in its entirety. fracture right hip leading to significant anemia at admission, worsened by the asa he normally takes. not a candidate for repair. poorly nutriated for the last couple of months. just in the hospital recently for pneumonia. during this hospitalization has developed aspiration pneumonia. hgb fairly stable after transfusion as is gfr, but sodium and wbc substantially elevated. on iv antibiotics for pneumonia. taking nothing by mouth. is agreeable with hospice care, and at the present time is uninterested in a feeding tube. chance for improvement small. all her questions were answered. Objective - Review of Systems Generalized/Overall Review: Reports: No Symptoms Reported - unable to provide history. history via spouse and nursing staff. hospice has already been consulted. - Vitals Vitals: Last Vital Signs Temp 36.6 C 10/13/19 10:00 Pulse 89 10/13/19 10:00 Resp 20 10/13/19 10:00 BP 114/56 10/13/19 10:00 Pulse Ox 96 10/13/19 10:00 vitals still quite stable. - Abnormal Lab Findings Abnormal Lab Findings: Abnormal Lab Results 10/13/19 10/13/19 Range/Units 06:20 06:20 WBC 21.9 H D (4.0-10.5) K/mm3 RBC 3.22 L (4.7-6.0) M/mm3 Hgb 9.5 L (13.5-18.0) gm/dL Hct 30.2 L (42.0-52.0) % MCHC 31.5 L (32-36) g/dl RDW 19.7 H (11.5-14.0) % Band Neuts % (Manual) 22 H (0-2.0) % Lymphocytes % (Manual) 8 L (20-51) % Neutrophils # (Manual) 13.8 H (1.3-6.0) K/mm3 Monocytes # (Manual) 1.5 H (0.0-1.0) k/mm3 Sodium 154 H (132-142) mmol/L Plasma Sodium 154 H (130-142) mmol/L Chloride 117 H (97-106) mmol/L Carbon Dioxide 21.9 L (24-32.6) mmol/L Anion Gap 18.5 H (6.8-13.8) mmol/L BUN 81 H (6-23) mg/dL Creatinine 2.03 H (0.4-1.4) mg/dL Est GFR (Non-Af Amer) 33 L (60-130) mL/min BUN/Creatinine Ratio 39.9 H (9.0-21.6) Calcium Adj for Albumin 10.3 H (8.4-10.2) mg/dL AST 86 H (0-48) U/L Total Protein 6.1 L (6.2-8.2) gm/dL Albumin 2.0 L (3.4-5.0) gm/dl - Exam Constitutional: Present: Obtunded, Elderly, Thin and frail ENT Exam: Present: normal ENT inspection Neck: Present: normal inspection Respiratory: Present: no respiratory distress, rhonchi Cardiovascular/Chest: Present: regular rate, rhythm, no edema, no JVD, no murmur Abdomen: Present: Normal bowel sounds, soft, nontender, nondistended, no hepatospenomegaly, no masses /Rectal: Present: Exam deferred Extremity: Present: no pedal edema Skin Exam: Present: cool/dry Neurologic: Absent: alert Appearance: Absent: appropriate appearance Eye contact: Present: refused to answer Thoughts: Present: other Assessment/Plan - Problems/Diagnosis (1) Displaced fracture of right femoral neck Problem: Acute (2) Anemia Problem: Acute Qualifiers: Anemia type: iron deficiency Iron deficiency anemia type: other iron deficiency Qualified Code(s): D50.8 - Other iron deficiency anemias Narrative: acute blood loss anemia due to acute right hip fracture somewhat accentuated perhaps by his chronic aspirin therapy. (3) Aspiration pneumonia Problem: Acute Qualifiers: Aspiration pneumonia type: unspecified Laterality: right Lung location: unspecified part of lung Qualified Code(s): J69.0 - Pneumonitis due to inhalation of food and vomit Narrative: middle and right lower. will continue antibiotics for now. agrees. (4) Hypernatremia Problem: Acute Narrative: have switched to D5W. will follow. (5) Obtunded Problem: Acute (6) Acute on chronic renal insufficiency Problem: Acute Narrative: fairly stable. will follow. (7) Protein-calorie malnutrition, severe Problem: Chronic Narrative: acute on chronic. for now, no feeding tube.
[2019-10-14] MEDS: AMPICILLIN SODIUM/SULBACTAM NA 1.5 GM in NORMAL SALINE 100 ML IV SCH ×4 (01:01→19:11)
[2019-10-14] MEDS: POTASSIUM CHLORIDE 10 MEQ in DEXTROSE 5 % IN WATER 1,000 ML IV SCH ×6 (05:29→23:19)
[2019-10-14 06:32] LABS: Hematocrit 27.7 % (42.0-52.0); Hemoglobin 8.7 gm/dL (13.5-18.0); Mean Cell Volume 94.9 fl (78-100); Mean Corpuscular Hemoglobin 29.8 pg (27-31); Mean Corpuscular Hgb Conc 31.4 g/dl (32-36); Mean Platelet Volume 9.4 fl (8-11.3); Platelet Count 457 K/mm3 (150-450); Red Blood Count 2.92 M/mm3 (4.7-6.0); Red Cell Distribution Width 19.6 % (11.5-14.0); White Blood Count 19.6 K/mm3 (4.0-10.5)
[2019-10-14 06:35] LABS: Total Cells Counted 100
[2019-10-14 06:41] LABS: Albumin * 1.7 gm/dl (3.4-5.0); Anion Gap 13.7 mmol/L (6.8-13.8); BUN/Creatinine Ratio 38.8 (9.0-21.6); Bilirubin, Total 0.3 mg/dL (0.0-1.1); Ca. Corrected For Albumin 10.3 mg/dL (8.4-10.2); Calcium * 8.8 mg/dL (7.9-10.9); Carbon Dioxide 23.7 mmol/L (24-32.6); Potassium 3.4 mmol/L (3.4-4.6); Total Protein 5.4 gm/dL (6.2-8.2)
[2019-10-14 06:50] LABS: Band 2 % (0-2.0); Lymphocyte 8 % (20-51); Monocyte 6 % (0-9); Neutrophil 84 % (42-75); Neutrophil # 16.5 K/mm3 (1.3-6.0); Platelet Estimate Normal (NORMAL)
[2019-10-14 06:51] LABS: Microcytosis 1+; Polychromasia 1+
--- NOTE | 2019-10-14 09:58 | PN ---
Subjective - Date and Time Seen Date: 10/14/19 Time: 09:49 Subjective Narrative: No acute events overnight. Patient is more alert and responsive. is at bedside and states he is improving. However his PO intake is poor. She is concerned about taking him home, as she does not think she will be able to take care of him alone. discussed hospice options, and recommended to address all her concerns with hospice and nurse case manager as they are better equipped to ad dress her concerns. . voiced understanding. No other concerns. Objective - Review of Systems Generalized/Overall Review: Reports: Weakness. Denies: Chills, Fever Cardiac: Denies: Chest Pain, Edema, Palpitations Abdominal: Denies: Vomiting, Abdominal Pain Genitourinary Symptoms: Reports: Incontinent. Denies: Burning, Itching, Urgency, Frequency Neurological: Reports: Weakness, Pre-existing Deficit - right hemiparesis for CV A Skin: Reports: Dryness - Vitals Vitals: Last Vital Signs Temp 36.7 C 10/14/19 07:08 Pulse 83 10/14/19 09:22 Resp 16 10/14/19 07:08 BP 107/47 10/14/19 07:08 Pulse Ox 97 10/14/19 07:08 - Abnormal Lab Findings Abnormal Lab Findings: Abnormal Lab Results 10/14/19 10/14/19 Range/Units 06:15 06:15 WBC 19.6 H (4.0-10.5) K/mm3 RBC 2.92 L (4.7-6.0) M/mm3 Hgb 8.7 L (13.5-18.0) gm/dL Hct 27.7 L (42.0-52.0) % MCHC 31.4 L (32-36) g/dl RDW 19.6 H (11.5-14.0) % Plt Count 457 H (150-450) K/mm3 Neutrophils % (Manual) 84 H (42-75) % Lymphocytes % (Manual) 8 L (20-51) % Neutrophils # (Manual) 16.5 H (1.3-6.0) K/mm3 Monocytes # (Manual) 1.2 H (0.0-1.0) k/mm3 Sodium 148 H (132-142) mmol/L Plasma Sodium 149 H (130-142) mmol/L Chloride 114 H (97-106) mmol/L Carbon Dioxide 23.7 L (24-32.6) mmol/L BUN 73 H (6-23) mg/dL Creatinine 1.88 H (0.4-1.4) mg/dL Est GFR (Non-Af Amer) 36 L (60-130) mL/min BUN/Creatinine Ratio 38.8 H (9.0-21.6) Random Glucose 192 H D (70-110) mg/dL Calcium Adj for Albumin 10.3 H (8.4-10.2) mg/dL AST 453 H (0-48) U/L ALT 251 H (19-67) U/L Total Protein 5.4 L (6.2-8.2) gm/dL Albumin 1.7 L (3.4-5.0) gm/dl - Exam Constitutional: Present: Alert, No distress, Thin and frail ENT Exam: Present: hard of hearing Neck: Present: non-tender, full range of motion, supple, normal inspection Respiratory: Present: chest non-tender, normal breath sounds, no respiratory distress, no accessory muscle use, rales - Right lower lobe Cardiovascular/Chest: Present: normal peripheral pulses, regular rate, rhythm, no chest tenderness, no edema, no gallop, no JVD, no murmur Abdomen: Present: Normal bowel sounds, soft, nontender, nondistended Extremity: Present: non-tender, normal inspection, no pedal edema, no calf tenderness, normal capillary refill. Absent: normal range of motion - Decreased range of motion Skin Exam: Present: normal color, warm/dry Neurologic: Present: alert, aphasia, facial droop - left, motor weakness, disoriented x 3 Appearance: Present: disheveled, impaired recent memory, impaired remote memory Eye contact: Present: decreased rate of speech Assessment/Plan Plan Narrative: Assessment/Plan 83 y/o M admitted due to fall resulting in displaced fracture of right femoral neck Anemia - acute blood loss anemia due to acute right hip fracture somewhat accentuated perhaps by his chronic aspirin therapy. - Slight decrease from previous labs, most likely dilutional - Continue to monitor - No signs or symptoms concerning for acute blood loss Aspiration pneumonia -middle and right lower. will continue antibiotics for now. -Leukocytosis improving Hypernatremia - Continue D5 due however resulting in hyperglycemia - Improving Hyperglycemia - Will check cmp at noon and consider switching to NS Obtunded - Slightly improved Acute on chronic renal insufficiency - Improving - Continue to monitor Protein-calorie malnutrition, severe -acute on chronic. for now, no feeding tube. FEN: D5W mIVFs, poor oral intake. Consider feeding tube DVT ppx: SCDs CODE STATUS: DNR/DNI Disposition: - Anticipate discharge within 48 hours with hospice - Consider feeding tube - Problems/Diagnosis (1) Displaced fracture of right femoral neck Problem: Acute (2) Aspiration pneumonia Problem: Acute Qualifiers: Aspiration pneumonia type: unspecified Laterality: right Lung location: unspecified part of lung Qualified Code(s): J69.0 - Pneumonitis due to inhalation of food and vomit (3) Hypernatremia Problem: Acute (4) Acute hyperglycemia Problem: Acute (5) Acute on chronic renal insufficiency Problem: Acute (6) Anemia Problem: Chronic Qualifiers: Anemia type: iron deficiency Iron deficiency anemia type: other iron deficiency Qualified Code(s): D50.8 - Other iron deficiency anemias (7) Obtunded Problem: Acute
[2019-10-14 12:24] LABS: BUN/Creatinine Ratio 41.2 (9.0-21.6)
[2019-10-14 12:25] LABS: Albumin * 1.6 gm/dl (3.4-5.0); Bilirubin, Total 0.3 mg/dL (0.0-1.1); Ca. Corrected For Albumin 10.7 mg/dL (8.4-10.2); Calcium * 9.1 mg/dL (7.9-10.9); Carbon Dioxide 23.4 mmol/L (24-32.6); Potassium 3.4 mmol/L (3.4-4.6); Total Protein 5.2 gm/dL (6.2-8.2)
[2019-10-15] MEDS: AMPICILLIN SODIUM/SULBACTAM NA 1.5 GM in NORMAL SALINE 100 ML IV SCH ×4 (01:36→18:48)
[2019-10-15 06:35] LABS: Hematocrit 24.1 % (42.0-52.0); Mean Cell Volume 95.6 fl (78-100); Mean Corpuscular Hemoglobin 29.4 pg (27-31); Mean Corpuscular Hgb Conc 30.7 g/dl (32-36); Mean Platelet Volume 10.4 fl (8-11.3); Platelet Count 245 K/mm3 (150-450); Red Blood Count 2.52 M/mm3 (4.7-6.0); Red Cell Distribution Width 19.4 % (11.5-14.0); White Blood Count 17.6 K/mm3 (4.0-10.5)
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
[2019-10-15 06:53] LABS: Hemoglobin 7.4 gm/dL (13.5-18.0)
[2019-10-15 06:55] LABS: Total Cells Counted 100
[2019-10-15 07:05] LABS: Anion Gap 13.3 mmol/L (6.8-13.8); BUN/Creatinine Ratio 32.2 (9.0-21.6); Calcium * 8.4 mg/dL (7.9-10.9); Carbon Dioxide 19.6 mmol/L (24-32.6); Eosinophil 2 % (0-3); Estimated Creat Clear 35.1; Lymphocyte 10 % (20-51); Monocyte 8 % (0-9); Neutrophil 80 % (42-75); Neutrophil # 14.1 K/mm3 (1.3-6.0); Platelet Estimate Normal (NORMAL); Potassium 3.9 mmol/L (3.4-4.6)
[2019-10-15 07:06] LABS: Anisocytosis 1+; Spherocyte 1+
[2019-10-15] MEDS ORDERED: guaiFENesin/DEXTROMETHORPHAN SYRUP PO PRN (07:07)
--- NOTE | 2019-10-15 07:09 | PN ---
Progess Note - Interim Date: 10/15/19 Time: 07:08 Narrative: 10/15/19 07:08 Hgb is 7.4 patient is clinically stable. will wait for tomorrow's hgb. if less than 7 will consider another transfusion depending on spouse's wishes.
[2019-10-15] MEDS: POTASSIUM CHLORIDE 10 MEQ in DEXTROSE 5 % IN WATER 1,000 ML IV SCH ×6 (08:25→16:25)
[2019-10-16] MEDS: AMPICILLIN SODIUM/SULBACTAM NA 1.5 GM in NORMAL SALINE 100 ML IV SCH ×2 (01:04→07:44)
[2019-10-16] MEDS: POTASSIUM CHLORIDE 10 MEQ in DEXTROSE 5 % IN WATER 1,000 ML IV SCH ×2 (01:39)
[2019-10-16 06:38] LABS: Hematocrit 27.1 % (42.0-52.0); Hemoglobin 8.5 gm/dL (13.5-18.0); Mean Cell Volume 93.8 fl (78-100); Mean Corpuscular Hemoglobin 29.4 pg (27-31); Mean Corpuscular Hgb Conc 31.4 g/dl (32-36); Mean Platelet Volume 9.3 fl (8-11.3); Platelet Count 445 K/mm3 (150-450); Red Blood Count 2.89 M/mm3 (4.7-6.0); Red Cell Distribution Width 18.8 % (11.5-14.0); White Blood Count 16.7 K/mm3 (4.0-10.5)
[2019-10-16 06:45] LABS: Total Cells Counted 100
[2019-10-16 06:48] LABS: Anion Gap 8.7 mmol/L (6.8-13.8); BUN/Creatinine Ratio 23.5 (9.0-21.6); Calcium * 9.2 mg/dL (7.9-10.9); Estimated Creat Clear 39.6; Potassium 3.7 mmol/L (3.4-4.6)
[2019-10-16 07:15] LABS: Band 1 % (0-2.0); Eosinophil 4 % (0-3); Lymphocyte 15 % (20-51); Monocyte 12 % (0-9); Neutrophil 68 % (42-75); Neutrophil # 11.4 K/mm3 (1.3-6.0)
[2019-10-16 07:16] LABS: Platelet Estimate Normal (NORMAL); RBC Morphology Normal (NORMAL)
[2019-10-16 07:35] VITALS: BP 119/49
--- NOTE | 2019-10-16 09:43 | DS ---
(1) Displaced fracture of right femoral neck Diagnosis(s): the plan at present is for no surgical repair due to debility Problem: Acute (2) Anemia Diagnosis(s): hgb now appears stable. will check again in 2 weeks and provide oral iron. Problem: Chronic Qualifiers: Anemia type: iron deficiency Iron deficiency anemia type: other iron deficiency Qualified Code(s): D50.8 - Other iron deficiency anemias (3) Aspiration pneumonia Diagnosis(s): will give augmentin for 14 more days and recheck CXR in 1 month. Problem: Acute Qualifiers: Aspiration pneumonia type: unspecified Laterality: right Lung location: unspecified part of lung Qualified Code(s): J69.0 - Pneumonitis due to inhalation of food and vomit (4) Swallowing difficulty Diagnosis(s): we have adjusted diet Problem: Acute Qualifiers: Dysphagia type: unspecified Qualified Code(s): R13.10 - Dysphagia, unspecified (5) Hypernatremia Diagnosis(s): has normalized. will do CMP in 2 weeks. Problem: Acute (6) Obtunded Diagnosis(s): markedly improved. not yet back to baseline. Problem: Resolved (7) Acute on chronic renal insufficiency Diagnosis(s): has improved. will recheck in 2 weeks. Problem: Acute (8) Protein-calorie malnutrition, severe Diagnosis(s): nutritional supplements tid as able. Problem: Chronic Hospital Course: admitted with acute blood loss anemia due to fractured right hip. given 2 units prbc's, now hgb seems stable. developed aspiration pneumonia while here which seems to be improving with antibiotics. was obtunded, which has also improved so that he is now able to take po had electrolyte imbalance and acute renal failure due to malnutrition, dehydration and acute anemia, which has resolved. he is very frail with severe malnutrition and aspiration pneumonia. this is the hospice main diagnosis. he is expected to within the next six month if he follows the expected course, even though he has been noted to improve during the course of hospitalization. his believes she can manage at home with the help of hospice. for the present time he will see me in the office on as needed basis only due to the difficulty in transporting him. Procedures Performed: none Results and Findings: Lab Pending Results 10/10/19 17:49: Blood Type A Positive, Antibody Screen Positive, Antibody Identification Anti-M, Crossmatch See Detail 10/11/19 05:45: Sodium 146 H, Plasma Sodium 146 H, Potassium 4.1, Chloride 110 H, Carbon Dioxide 21.2 L, Anion Gap 18.9 H, BUN 84 H, Creatinine 2.02 H, Est GFR (Non-Af Amer) 34 L, BUN/Creatinine Ratio 41.6 H, Random Glucose 93, Calcium 8.8, Calcium Adj for Albumin 9.8, Total Bilirubin 0.3, AST 17, ALT 15 L, Alkaline Phosphatase 80, Total Protein 5.8 L, Albumin 2.4 L 10/11/19 05:45: WBC 8.4 D, RBC 1.52 L, Hgb 4.7 L* D, Hct 15.3 L* D, MCV 100.7 H, MCH 30.9, MCHC 30.7 L, RDW 14.7 H, Plt Count 422, MPV 8.8, Immature Gran % (Auto) 0.40, Immature Gran # (Auto) 0.03, Neutrophils % 69.0, Lymphocytes % 19.0 L, Monocytes % 11.0 H, Eosinophils % 0.4, Basophils % 0.2, Nucleated RBC % 0.1, Neutrophils # 5.8, Lymphocytes # 1.59, Monocytes # 0.9, Eosinophils # 0.0, Absolute Basophils 0.0 10/11/19 07:05: Urine Color Yellow, Urine Appearance Slightly cloudy, Urine pH 5.5, Ur Specific [place] 1.020, Urine Protein Negative, Urine Glucose (UA) Negative, Urine Ketones Negative, Urine Blood 10 H, Urine Nitrate Negative, Urine Bilirubin Negative, Urine Urobilinogen Normal, Ur Leukocyte Esterase Negative, Urine RBC 0-5, Urine WBC 0-5, Ur Epithelial Cells 0-5, Urine Bacteria Trace, Urine Mucus Few - 1+ H, Urine Culture Comments Culture to follow 10/11/19 19:45: Hgb 10.2 L, Hct 32.1 L 10/12/19 06:30: WBC 12.6 H D, RBC 3.26 L, Hgb 9.7 L, Hct 30.6 L, MCV 93.9, MCH 29.8, MCHC 31.7 L, RDW 18.6 H, Plt Count 355, MPV 8.7, Neutrophils % (Manual) 39 L, Band Neuts % (Manual) 36 H, Lymphocytes % (Manual) 19 L, Monocytes % (Manual) 2, Eosinophils % (Manual) 2, Immature Granulocytes 2 H, Neutrophils # (Manual) 4.9, Lymphocytes # (Manual) 2.4, Monocytes # (Manual) 0.3, Eosinophils # (Manual) 0.3, Nucleated RBCs 8.0 H, Platelet Estimate Normal, Polychromasia Trace, Microcytosis 1+ 10/12/19 06:35: Sodium 149 H, Plasma Sodium 149 H, Potassium 3.5, Chloride 114 H, Carbon Dioxide 22.8 L, Anion Gap 15.7 H, BUN 81 H, Creatinine 1.97 H, Est GFR (Non-Af Amer) 35 L, BUN/Creatinine Ratio 41.1 H, Random Glucose 94, Calcium 8.8, Calcium Adj for Albumin 9.8, Total Bilirubin 0.5, AST 18, ALT 15 L, Alkaline Phosphatase 77, Total Protein 5.9 L, Albumin 2.3 L 10/13/19 06:20: WBC 21.9 H D, RBC 3.22 L, Hgb 9.5 L, Hct 30.2 L, MCV 93.8, MCH 29.5, MCHC 31.5 L, RDW 19.7 H, Plt Count 442, MPV 8.9, Neutrophils % (Manual) 63, Band Neuts % (Manual) 22 H, Lymphocytes % (Manual) 8 L, Monocytes % (Manual) 7, Neutrophils # (Manual) 13.8 H, Lymphocytes # (Manual) 1.8, Monocytes # (Manual) 1.5 H, Platelet Estimate Normal, Polychromasia 1+, Anisocytosis 1+, Microcytosis 1+ 10/13/19 06:20: Sodium 154 H, Plasma Sodium 154 H, Potassium 3.4, Chloride 117 H, Carbon Dioxide 21.9 L, Anion Gap 18.5 H, BUN 81 H, Creatinine 2.03 H, Est GFR (Non-Af Amer) 33 L, BUN/Creatinine Ratio 39.9 H, Random Glucose 99, Calcium 9.0, Calcium Adj for Albumin 10.3 H, Total Bilirubin 0.5, AST 86 H, ALT 47, Alkaline Phosphatase 73, Total Protein 6.1 L, Albumin 2.0 L 10/14/19 06:15: WBC 19.6 H, RBC 2.92 L, Hgb 8.7 L, Hct 27.7 L, MCV 94.9, MCH 29.8, MCHC 31.4 L, RDW 19.6 H, Plt Count 457 H, MPV 9.4, Neutrophils % (Manual) 84 H, Band Neuts % (Manual) 2, Lymphocytes % (Manual) 8 L, Monocytes % (Manual) 6, Neutrophils # (Manual) 16.5 H, Lymphocytes # (Manual) 1.6, Monocytes # (Manual) 1.2 H, Platelet Estimate Normal, Polychromasia 1+, Microcytosis 1+ 10/14/19 06:15: Sodium 148 H, Plasma Sodium 149 H, Potassium 3.4, Chloride 114 H, Carbon Dioxide 23.7 L, Anion Gap 13.7, BUN 73 H, Creatinine 1.88 H, Est GFR (Non-Af Amer) 36 L, BUN/Creatinine Ratio 38.8 H, Random Glucose 192 H D, Calcium 8.8, Calcium Adj for Albumin 10.3 H, Total Bilirubin 0.3, AST 453 H, ALT 251 H, Alkaline Phosphatase 95, Total Protein 5.4 L, Albumin 1.7 L 10/14/19 11:56: Sodium 145 H, Plasma Sodium 146 H, Potassium 3.4, Chloride 113 H, Carbon Dioxide 23.4 L, Anion Gap 12.0, BUN 68 H, Creatinine 1.65 H, Est GFR (Non-Af Amer) 42 L, BUN/Creatinine Ratio 41.2 H, Random Glucose 183 H, Calcium 9.1, Calcium Adj for Albumin 10.7 H, Total Bilirubin 0.3, AST 455 H, ALT 310 H, Alkaline Phosphatase 88, Total Protein 5.2 L, Albumin 1.6 L 10/15/19 06:33: WBC 17.6 H, RBC 2.52 L, Hgb 7.4 L*, Hct 24.1 L, MCV 95.6, MCH 29.4, MCHC 30.7 L, RDW 19.4 H, Plt Count 245, MPV 10.4, Neutrophils % (Manual) 80 H, Lymphocytes % (Manual) 10 L, Monocytes % (Manual) 8, Eosinophils % (Manual) 2, Neutrophils # (Manual) 14.1 H, Lymphocytes # (Manual) 1.8, Monocytes # (Manual) 1.4 H, Eosinophils # (Manual) 0.4, Platelet Estimate Normal, Anisocytosis 1+, Spherocytes 1+ 10/15/19 06:33: Sodium 140, Plasma Sodium 141, Potassium 3.9, Chloride 111 H, Carbon Dioxide 19.6 L, Anion Gap 13.3, BUN 48 H, Creatinine 1.49 H, Est GFR (Non-Af Amer) 48 L, BUN/Creatinine Ratio 32.2 H, Random Glucose 150 H, Calcium 8.4 10/16/19 06:20: WBC 16.7 H, RBC 2.89 L, Hgb 8.5 L, Hct 27.1 L, MCV 93.8, MCH 29.4, MCHC 31.4 L, RDW 18.8 H, Plt Count 445, MPV 9.3, Neutrophils % (Manual) 68, Band Neuts % (Manual) 1, Lymphocytes % (Manual) 15 L, Monocytes % (Manual) 12 H, Eosinophils % (Manual) 4 H, Neutrophils # (Manual) 11.4 H, Lymphocytes # (Manual) 2.5, Monocytes # (Manual) 2.0 H, Eosinophils # (Manual) 0.7, Platelet Estimate Normal, RBC Morphology Normal 10/16/19 06:20: Sodium 134, Plasma Sodium 134, Potassium 3.7, Chloride 105, Carbon Dioxide 24.0, Anion Gap 8.7, BUN 31 H, Creatinine 1.32, Est GFR (Non-Af Amer) 55 L, BUN/Creatinine Ratio 23.5 H, Random Glucose 118 H, Calcium 9.2 Discharge Location: Home Disposition: Hospice Home Home Health Agency: [facility] Hospice Condition: Poor Face to Face Encounter completed per [facility] Guidelines: Yes - qualifies for hospice due to the above described problem. Discharge Activity: Other - no wgt right leg. PT at home may teach him to pivot on left. Discharge Diet: Other - pureed, nectar liquids. Long Term Therapy: Physical Therapy - at home.....perhaps learn to pivot and sit in chair. Referrals: Marlon Yanes MD [Primary Care Provider] - Additional Patient Instructions (free text): [facility] Hospice new at home when discharged, please call and fax discharge information. call as needed for problems or questions. see me in the office on an as needed basis only. Complete Home Medications List: Complete Home Medication List: Bifidobacterium infantis 1.5 billion cell capsule 4 mg PO DAILY 07/30/19 cholecalciferol (vitamin D3) 2,000 unit capsule 2,000 unit PO DAILY 07/30/19 folic acid 1 mg tablet 1 mg PO DAILY 07/30/19 ipratropium-albuterol 0.5 mg-3 mg(2.5 mg base)/3 mL nebulization soln 3 ml IH QID PRN ml 07/30/19 thiamine HCl (vitamin B1) 100 mg tablet 100 mg PO DAILY 07/30/19 Cyanocobalamin (Vitamin B-12) [Vitamin B-12] 1,000 mcg SUBLINGUAL DAILY #30 tab.subl 09/16/19 Nut.tx.impaired Digest Fxn [Ensure Clear] 200 ml PO TID #90 liquid 09/16/19 Vitamin B Comp W-C [Vitabee W/C] 1 tab PO DAILY #30 tab 09/16/19 carvedilol 3.125 mg tablet 3.125 mg PO BID #60 tab 09/22/19 Rosuvastatin Calcium [Crestor] 20 mg PO HS 10/04/19 Acetaminophen 325 mg PO DAILY #300 ml 10/16/19 Amox Tr/Potassium Clavulanate [Augmentin Es 600-42.9/5 Suspension] 600 mg PO BID 10 Days btl 10/16/19 Ferrous Sulfate [Ferrous Sulfate Elixir] 220 mg PO DAILY 30 Days btl 10/16/19
== END 2019-10-16 14:50 | disposition hospice, home (50) | DRG 535 ==
LOC: ER 16:26 → MS 17:33
PROVIDERS: ADMIT Family Medicine; ATTEND Allergy & Immunology
DX: W01.0XXA Fall on same level from slipping, tripping and stumbling without subsequent striking against object, initial encounter; I50.42 Chronic combined systolic (congestive) and diastolic (congestive) heart failure; N18.9 Chronic kidney disease, unspecified; F01.50 Vascular dementia, unspecified severity, without behavioral disturbance, psychotic disturbance, mood disturbance, and anxiety; R73.9 Hyperglycemia, unspecified; E87.5 Hyperkalemia; S72.031A Displaced midcervical fracture of right femur, initial encounter for closed fracture; E87.0 Hyperosmolality and hypernatremia; Z91.81 History of falling; R13.10 Dysphagia, unspecified; E43 Unspecified severe protein-calorie malnutrition; N17.9 Acute kidney failure, unspecified; D62 Acute posthemorrhagic anemia; J69.0 Pneumonitis due to inhalation of food and vomit
CPT/HCPCS: 36415; 71010; 71045; 73700; 80048; 80053; 81001; 85007; 85014; 85018; 85025; 86850; 86870; 87086; 92610; 93005; 94640; 94664; 99285; P9016